=== PATIENT | male | born 1955 | race Caucasian/White ===

== ENCOUNTER 2019-01-16 12:47 | Inpatient (IN) | payer OTHER ==
[~2019-01-16] VITALS: Ht 170.2 cm; Wt 76.8 kg
[~2019-01-16 12:47] MED LIST: APIX5TAB PO; CIPR500T4 PO; FELO5TAB35 PO; FURO20TA3 PO; HYDR-3980 PO; LOSA25TA12 PO; METR-122 PO; MORP10SO PO
--- NOTE | 2019-01-16 13:28 | EN ---
Date/Time of Note Date/Time of Note DATE: 01/16/19 TIME: 13:27 ER Progress Note 63-year-old male with history of colon cancer status post surgery, metastatic liver disease and bone cancer presents for abdominal pain and distention. Medical screening exam initiated and lab/imaging tests ordered. Patient will be seen by another provider. MARTIN JONES DO Jan 16, 2019 13:28
[2019-01-16] MEDS ORDERED: ACETAMINOPHEN 325 MG TAB PO PRN ×2 (18:00→19:30)
[2019-01-16] MEDS ORDERED: ONDANSETRON 4 MG INJ IV PRN ×2 (18:00→19:30)
--- NOTE | 2019-01-16 18:30 | ERD ---
ER Documentation Chief Complaint Chief Complaint abdominal distention/pain/swelling,yellowish discoloration-hx liver cancer HPI 63-year-old male with a history of recurrent colon cancer metastasized to the liver with a liver mass presenting with abdominal distention with new onset jaundice and dark-colored urine. His symptoms have been going on for the past 2 days. No significant abdominal pain. Patient was last here in July, during which time it was found that the patient had a metastatic liver lesion that was causing biliary obstruction. At that time stent was placed and liver biopsy was done. After that the patient symptoms improved. He is currently undergoing chemotherapy and is due soon for his next round of chemo. He has not seen a GI doctor after that hospitalization. He denies any fevers but states that he has night sweats which are not new. No vomiting or diarrhea. He does complained of some mild constipation. ROS All systems reviewed and are negative except as per history of present illness. Medications Home Meds Discontinued Reported Medications Losartan Potassium* (Losartan Potassium*) 25 Mg Tablet, 25 MG PO DAILY 07/24/18 Felodipine* (Felodipine*) 5 Mg Tab.sr.24h, 5 MG PO DAILY 07/24/18 Discontinued Scripts Apixaban* (Eliquis*) 5 Mg Tablet, 2.5 MG PO BID for 60 Days, #120 TAB Prov:MEGHAN HAYNES MD 07/28/18 Allergies Allergies: Coded Allergies: No Known Allergy (Unverified , 07/24/18) PMhx/Soc History of Surgery: Yes (Colon tumor removed 2015, ) Anesthesia Reaction: No Hx Neurological Disorder: No Hx Respiratory Disorders: No Hx Cardiac Disorders: Yes (HTN) Hx Psychiatric Problems: No Hx Miscellaneous Medical Probl: Yes (Liver/colon CA) Hx Alcohol Use: Yes (Alcohol on weekends (6 beers)) Hx Substance Use: No Hx Tobacco Use: Yes (Quit in 1990) Smoking Status: Former smoker FmHx Family History: No diabetes Physical Exam Vitals Vital Signs Date Temp Pulse Resp B/P (MAP) Pulse Ox O2 O2 Flow FiO2 Time Delivery Rate 01/16/19 88 16 101/60 95 Room Air 18:00 (74) 01/16/19 90 16 104/64 94 Room Air 17:00 (77) 01/16/19 98.2 104 20 96/54 (68) 94 12:55 Physical Exam Const: No acute distress, appears jaundiced. Nontoxic Head: Atraumatic Eyes: Scleral icterus, PERRLA ENT: Normal External Ears, Nose and Mouth. Neck: Full range of motion. No meningismus. Resp: Clear to auscultation bilaterally Cardio: Regular rate and rhythm, no murmurs Abd: Soft, nontender to palpation in all 4 quadrants. Negative Saenz sign. Distended with ascites. No peritoneal signs. No palpable masses. No hernias noted. Hypoactive bowel sounds. Skin: Jaundiced. No petechiae or rashes Back: No midline or flank tenderness Ext: No cyanosis, or edema Neur: Awake and alert, normal speech, no facial asymmetry, moving all extremities Psych: Normal Mood and Affect Result Diagram: 01/16/19 1334 01/16/19 1334 Results 24 hrs Laboratory Tests Test 01/16/19 13:34 White Blood Count 12.0 10^3/ul Red Blood Count 4.29 10^6/ul Hemoglobin 12.6 g/dl Hematocrit 37.9 % Mean Corpuscular Volume 88.3 fl Mean Corpuscular Hemoglobin 29.4 pg Mean Corpuscular Hemoglobin Concent 33.2 g/dl Red Cell Distribution Width 19.2 % Platelet Count 234 10^3/UL Mean Platelet Volume 7.8 fl Immature Granulocytes % 0.900 % Neutrophils % 74.6 % Lymphocytes % 12.4 % Monocytes % 11.0 % Eosinophils % 0.6 % Basophils % 0.5 % Nucleated Red Blood Cells % 0.0 /100WBC Immature Granulocytes # 0.110 10^3/ul Neutrophils # 9.0 10^3/ul Lymphocytes # 1.5 10^3/ul Monocytes # 1.3 10^3/ul Eosinophils # 0.1 10^3/ul Basophils # 0.1 10^3/ul Nucleated Red Blood Cells # 0.0 10^3/ul Prothrombin Time 14.9 Sec Prothrombin Time Ratio 1.2 INR International Normalized Ratio 1.16 Activated Partial Thromboplast Time 35.1 Sec Urine Color CHARLIE Urine Clarity SLIGHTLY CLOUDY Urine pH 5.0 Urine Specific [place] 1.017 Urine Ketones NEGATIVE mg/dL Urine Nitrite NEGATIVE mg/dL Urine Bilirubin 2+ mg/dL Urine Urobilinogen 2+ mg/dL Urine Leukocyte Esterase NEGATIVE [place]/ul Urine Microscopic RBC 0 /HPF Urine Microscopic WBC 8 /HPF Urine Amorphous Crystals FEW /HPF Urine Bacteria FEW /HPF Urine Hemoglobin NEGATIVE mg/dL Urine Glucose NEGATIVE mg/dL Urine Total Protein NEGATIVE mg/dl Sodium Level 137 mmol/L Potassium Level 4.6 mmol/L Chloride Level 103 mmol/L Carbon Dioxide Level 26 mmol/L Anion Gap 8 Blood Urea Nitrogen 24 mg/dl Creatinine 1.43 mg/dl Est Glomerular Filtrat Rate mL/min 50 mL/min Glucose Level 149 mg/dl Calcium Level 8.8 mg/dl Total Bilirubin 7.3 mg/dl Direct Bilirubin 5.60 mg/dl Indirect Bilirubin 1.7 mg/dl Aspartate Amino Transf (AST/SGOT) 362 IU/L Alanine Aminotransferase (ALT/SGPT) 195 IU/L Alkaline Phosphatase 1305 IU/L Total Protein 9.0 g/dl Albumin 3.0 g/dl Globulin 6.00 g/dl Albumin/Globulin Ratio 0.50 Lipase 372 U/L Current Medications Medications Dose Sig/Oni Start Time Status Last (Trade) Ordered Route PRN Stop Time Admin Dose Reason Admin Ondansetron 4 mg BRIDGE ORDER 01/16/19 HCl (Zofran PRN IV 18:00 01/17/19 Inj) NAUSEA/VOMITI 17:59 NG 650 mg ER BRIDGE 01/16/19 Acetaminophen PRN PO 18:00 01/17/19 (Tylenol .MILD PAIN 17:59 Tab) 1-3 OR TEMP Procedures/MDM EMERGENT LABS AND DIAGNOSTIC STUDIES: Lab Results above were reviewed and interpreted by me. CBC: no anemia or evidence of infection CMP: Evidence of biliary obstruction with elevated alkaline phosphatase level, hyperbilirubinemia, and transaminitis. Lipase: Mild elevation, no evidence of significant pancreatitis 12-lead EKG was interpreted by Damari Álvarez MD: Normal Sinus Rhythm with ventricular rate of 90 beats per minute Right bundle branch block No acute ST or T wave changes suggestive of acute ischemia or STEMI. Radiology Results as interpreted by Radiology below were reviewed by Umesh Álvarez MD: Chest x-ray shows right pleural effusion Initial Nursing notes reviewed. Previous Medical Records requested via the Electronic Health Record. EMERGENCY DEPARTMENT COURSE / MEDICAL DECISION MAKING: Patient is presenting with new onset jaundice and ascites, likely secondary to biliary obstruction based on his work-up today. Low suspicion for cholangitis or SBP. Patient will require admission for GI consult and intervention most likely. I will defer any further work-up to the inpatient team. Patient will be admitted by Dr. Smith. Consulting Dr. Franco, as he was the GI doctor that saw him on the last admission. Departure Diagnosis: Primary Impression: Ascites Ascites type: other type Qualified Codes: R18.8 - Other ascites Additional Impressions: Biliary tract obstruction Metastatic colon cancer to liver Condition: KATIA Solorzano MD Jan 16, 2019 18:29
[2019-01-16] MEDS ORDERED: NACL 0.9% 3 ML SYG IV SCH (19:30)
[2019-01-16] MEDS ORDERED: morphine 2 MG INJ IV PRN (19:30)
[2019-01-16] MEDS ORDERED: ALBUTEROL/IPRATROPIUM (NEB) 3 ML AMP HHN PRN (19:30)
[2019-01-16] MEDS ORDERED: LORAZEPAM 2 MG INJ IV PRN (19:30)
[2019-01-16] MEDS ORDERED: NITROGLYCERIN (SL) 0.4 MG TAB SL PRN (19:30)
[2019-01-16] MEDS ORDERED: hydrALAzine 20 MG INJ IV PRN (19:30)
[2019-01-16] MEDS ORDERED: DOCUSATE SODIUM 100 MG CAP PO PRN (19:30)
[2019-01-16] MEDS ORDERED: MAGNESIUM HYDROXIDE 30ML CUP PO PRN (19:30)
[2019-01-16] MEDS: SOD CHLORIDE 0.45% 1,000 ML IV SCH (20:46)
[2019-01-16] MEDS: HEPARIN 5,000 UNIT/1 ML VIAL SC SCH (21:28)
[2019-01-16 22:35] VITALS: BP 109/56; PULSE 95; RESP 18
--- NOTE | 2019-01-16 23:01 | HP ---
Date/Time of Note Date/Time of Note DATE: 01/16/19 TIME: 23:01 Assessment/Plan VTE Prophylaxis Pharmacological prophylaxis: heparin Lines/Catheters IV C[facility] Type [facility]from [facility] portacath Assessment/Plan Assessment/Plan 1. Colon cancer with mets to the liver and lung -Patient had colon resection 3 years ago, but unfortunately diagnosed with liver mets in July of this year. -He said he has been receiving chemo ("11 times")and follows up at [facility]. He is oncologist is Dr.Nader Wright ([phone]). 2. Abdominal pain/distention and jaundice -Patient underwent ERCP with stent placement in July of this year. -His bilirubin has improved, however transaminases and alk phos significantly worsening -Obtain abdominal imaging -GI consult 3. Acute renal insufficiency -Continue hydration for now 4. Portal vein thrombosis: diagnosed in July when diagnosed with liver mets -Blood thinner Result Diagram: 01/16/19 1334 01/16/19 1334 Results 24hrs Laboratory Tests Test 01/16/19 13:34 01/16/19 17:30 White Blood Count 12.0 H Red Blood Count 4.29 #L Hemoglobin 12.6 #L Hematocrit 37.9 #L Mean Corpuscular Volume 88.3 Mean Corpuscular Hemoglobin 29.4 Mean Corpuscular Hemoglobin Concent 33.2 Red Cell Distribution Width 19.2 H Platelet Count 234 # Mean Platelet Volume 7.8 Immature Granulocytes % 0.900 H Neutrophils % 74.6 Lymphocytes % 12.4 L Monocytes % 11.0 Eosinophils % 0.6 Basophils % 0.5 Nucleated Red Blood Cells % 0.0 Immature Granulocytes # 0.110 H Neutrophils # 9.0 H Lymphocytes # 1.5 Monocytes # 1.3 H Eosinophils # 0.1 Basophils # 0.1 Nucleated Red Blood Cells # 0.0 Prothrombin Time 14.9 Prothrombin Time Ratio 1.2 INR International Normalized Ratio 1.16 Activated Partial Thromboplast Time 35.1 H Urine Color CHARLIE Urine Clarity SLIGHTLY CLOUDY A Urine pH 5.0 Urine Specific [place] 1.017 Urine Ketones NEGATIVE Urine Nitrite NEGATIVE Urine Bilirubin 2+ H Urine Urobilinogen 2+ H Urine Leukocyte Esterase NEGATIVE Urine Microscopic RBC 0 Urine Microscopic WBC 8 H Urine Amorphous Crystals FEW A Urine Bacteria FEW A Urine Hemoglobin NEGATIVE Urine Glucose NEGATIVE Urine Total Protein NEGATIVE Sodium Level 137 Potassium Level 4.6 Chloride Level 103 Carbon Dioxide Level 26 Anion Gap 8 Blood Urea Nitrogen 24 H Creatinine 1.43 H Est Glomerular Filtrat Rate mL/min 50 L Glucose Level 149 Calcium Level 8.8 Total Bilirubin 7.3 H Direct Bilirubin 5.60 H Indirect Bilirubin 1.7 H Aspartate Amino Transf (AST/SGOT) 362 H Alanine Aminotransferase (ALT/SGPT) 195 H Alkaline Phosphatase 1305 H Total Protein 9.0 H Albumin 3.0 L Globulin 6.00 H Albumin/Globulin Ratio 0.50 Lipase 372 H Free Thyroxine 2.43 HPI/ROS Admit Date/Time Admit Date/Time Jan 16, 2019 at 18:00 Hx of Present Illness Patient is a 63-year-old male with a history of colon cancer diagnosed 3 years ago status post resection (no chemo), recently diagnosed liver and lung metastasis (July 2018), obstructive jaundice status post ERCP with stent placement. Patient was brought to the ER for abdominal pain and distention. Patient also complains of jaundice. He was admitted here in July of this year and at that time he was diagnosed with liver metastasis. He also underwent ERCP with stent placement for obstructive jaundice. He said this current jaundice and worsening abdominal pain/distention started 6 days ago. He said he has been receiving chemo ("11 times")and follows up at [facility]. He is oncologist is Dr.Nader Wright ([phone]). When he presented to the ER, vitals were stable. Labs shows worsening liver chemistries with AST 362, ALT 160, alk phos 1100. Bilirubin however improved from last admission. PMH/Family/Social Past Medical History Past Surgical Hx: other (see hpi) Family History Significant Family History: no pertinent family hx, other Social History Alcohol Use: other Smoking Status: Unknown if ever smoked Drug Use: other Exam Constitutional: other (no acute distress) Head: normocephalic Eyes: PERRL Neck: supple Respiratory: clear to auscultation Cardiovascular: nl pulses Gastrointestinal: soft Extremities: normal pulses Medical History: other Medications Current Medications Ondansetron HCl (Zofran Inj) 4 mg BRIDGE ORDER PRN IV NAUSEA/VOMITING; Start 01/16/19 at 18:00; Stop 01/17/19 at 17:59 Acetaminophen (Tylenol Tab) 650 mg ER BRIDGE PRN PO .MILD PAIN 1-3 OR TEMP; Start 01/16/19 at 18:00; Stop 01/17/19 at 17:59 IV Flush (NS 3 ml) 3 ml PER PROTOCOL IV ; Start 01/16/19 at 19:30 Ondansetron HCl (Zofran Inj) 4 mg Q6H PRN IV NAUSEA/VOMITING; Start 01/16/19 at 19:30 Acetaminophen (Tylenol Tab) 650 mg Q6H PRN PO .PAIN 1-3 OR TEMP; Start 01/16/19 at 19:30 Acetaminophen/ Hydrocodone Bitart ([place] (5/325)) 1 tab Q6H PRN PO .MOD PAIN 4- 6; Start 01/16/19 at 19:30 Morphine Sulfate (morphine) 2 mg Q4H PRN IV .SEVERE PAIN 7-10 Last administered on 01/16/19at 21:27; Admin Dose 2 MG; Start 01/16/19 at 19:30 Docusate Sodium (Colace) 100 mg Q12H PRN PO .CONSTIPATION; Start 01/16/19 at 19:30 Magnesium Hydroxide (Milk Of Mag) 30 ml DAILY PRN PO .CONSTIPATION; Start 01/16/19 at 19:30 Pantoprazole (Protonix Iv) 40 mg DAILY@06 IV ; Start 01/17/19 at 06:00 Heparin Sodium (Porcine) (Heparin (5000 Units/1ml)) 5,000 unit Q12 SC Last administered on 01/16/19at 21:28; Admin Dose 5,000 UNIT; Start 01/16/19 at 21:00 Sodium Chloride 1,000 ml @ 75 mls/hr [id number] IV Last administered on 01/16/19at 20:46; Admin Dose 75 MLS/HR; Start 01/16/19 at 19:13 Lorazepam (Ativan) 0.5 mg Q6H PRN IV ANXIETY; Start 01/16/19 at 19:30 Albuterol/ Ipratropium (Duoneb) 3 ml Q4H RESP THERAPY PRN HHN SHORTNESS OF BREATH; Start 01/16/19 at 19:30 Piperacillin Sod/ Tazobactam Sod 100 ml @ 200 mls/hr Q6 IVPB ; Start 01/17/19 at 00:00 Hydralazine HCl (Apresoline) 10 mg Q6H PRN IV ELEVATED BLOOD PRESSURE; Start 01/16/19 at 19:30 Nitroglycerin (Nitroglycerin (Sl Tab) 0.4 Mg) 1 tab Q5M PRN SL ANGINA; Start 01/16/19 at 19:30 Coded Allergies: No Known Allergy (Unverified , 07/24/18) Family History Significant Family History: cancer Social History Smoking Status: Former smoker Exam/Review of Systems Vital Signs Vitals Vital Signs Date Temp Pulse Resp B/P (MAP) Pulse Ox O2 O2 Flow FiO2 Time Delivery Rate 01/16/19 97.5 95 18 109/56 96 22:35 (73) 01/16/19 Room Air 21:00 JOVANNA JIANG MD Jan 16, 2019 23:01
[2019-01-16] MEDS: PIPER-TAZO 3.375 GM IV (PMX) 100 ML IVPB SCH (23:08)
[2019-01-16 23:35] VITALS: Ht 170.2 cm; Wt 76.8 kg
[2019-01-17] VITALS (15 sets, daily range): BP systolic 73–107; BP diastolic 40–59; PULSE 82–102; RESP 7–20
[2019-01-17] MEDS: PIPER-TAZO 3.375 GM IV (PMX) 100 ML IVPB SCH ×4 (06:11→23:38)
[2019-01-17] MEDS: PANTOPRAZOLE 40 MG INJ IV SCH (06:11)
[2019-01-17] MEDS: SOD CHLORIDE 0.45% 1,000 ML IV SCH (08:33)
[2019-01-17] MEDS: HYDROCODONE/APAP (5/325) TAB PO PRN (09:22)
[2019-01-17] MEDS: HEPARIN 5,000 UNIT/1 ML VIAL SC SCH ×2 (09:22→20:50)
--- NOTE | 2019-01-17 13:22 | CONS ---
DATE OF ADMISSION: 01/16/2019 DATE OF CONSULTATION: 01/17/2019 TYPE OF CONSULTATION: Gastroenterology. Dear Dr. Knott: Thank you for asking me to see Mr. Lacy in GI consultation. HISTORY OF PRESENT ILLNESS: As you know, patient is a 63-year-old gentleman admitted at thi s time to the hospital with history of jaundice and abdominal pain. He is known to have a metastatic carcinoma to the liver. At one point in July 2018 it was felt that he had a [place] tumor and metal stent was placed into the right hepatic duct. The left hepatic duct was completely occluded at that time. At this time, there is no nausea, no vomiting. He has got abdominal pain. He is recei ving chemotherapy at [facility]. REVIEW OF SYSTEM: Please refer to the chart. PHYSICAL EXAMINATION: GENERAL: The patient is a 63-year-old male who at this time is quite alert. VITAL SIGNS: Afebrile. CARDIOVASCULAR: Normal heart sounds. RESPIRATORY: Normal breath sounds. ABDOMEN: Soft. He does have jaundice. LABORATORY WORKUP: WBC count is 10,400, hemoglobin 11.0, potassium 4.5, total bilirubin is 7.0, AST is 272, ALT 160, alkaline phosphatase is 1095, lipase is 372. The ultrasound of the upper abdomen shows evidence of hepatosplenomegaly with echotexture consistent with cirrhosis and ascites. Gallbladder wall thickening, small echogenic nodule noted in the right l obe of the liver consistent with metastatic disease. CLINICAL IMPRESSION: The patient has progressive jaundice at this time. It is quite possible he cou ld have the metal stent which he has in place now could have been occluded and probably could have di ffuse metastatic liver disease. He has a history of colon cancer resection done 3 years ago, not sure whether he had repeat colonosco py. PLAN: At this time, we will wait for the CAT scan of the abdomen results and he will have an ERCP fo r evaluation and management. I discussed with the patient and patient agreed. Dictated By: DOMINIC GONZALEZ/NTS Conf#: [id number] DID#: [id number] CC: JOVANNA KNOTT MD;*EndCC*
--- NOTE | 2019-01-17 14:12 | PN ---
Date/Time of Note Date/Time of Note DATE: 01/17/19 TIME: 14:02 Assessment/Plan VTE Prophylaxis Risk score (from Ns)>0 risk: 2 SCD applied (from [facility] Yes Pharmacological prophylaxis: heparin Lines/Catheters IV C[facility] Type [facility]from [facility] Port A cath Assessment/Plan Assessment/Plan 1. Obstructive jaundice from metastatic colon cancer, s/p stent in 07/2018, repeat ERCP today 2. Colon cancer with mets to the liver and lungs, s/p colon resection 3 years ago, but diagnosed with liver mets in July 2018, on chemotherapy with Dr.Nader Wright ([phone]). 3. Acute renal insufficiency, IVF, follow up with BMP 4. Portal vein thrombosis: diagnosed in 07/2018 5. Normocytic anemia due to malignancy, follow up with H/H 6. DVT prophylaxis: heparin SQ Result Diagram: 01/17/19 0452 01/17/19 0452 Results 24hrs Laboratory Tests Test 01/16/19 17:30 01/17/19 04:52 Free Thyroxine 2.43 White Blood Count 10.4 Red Blood Count 3.75 L Hemoglobin 11.0 L Hematocrit 33.3 L Mean Corpuscular Volume 88.8 Mean Corpuscular Hemoglobin 29.3 Mean Corpuscular Hemoglobin Concent 33.0 Red Cell Distribution Width 19.3 H Platelet Count 223 Mean Platelet Volume 8.4 Immature Granulocytes % 1.000 H Neutrophils % 72.3 Lymphocytes % 12.9 L Monocytes % 11.8 H Eosinophils % 1.5 Basophils % 0.5 Nucleated Red Blood Cells % 0.0 Immature Granulocytes # 0.100 H Neutrophils # 7.5 Lymphocytes # 1.3 Monocytes # 1.2 H Eosinophils # 0.2 Basophils # 0.1 Nucleated Red Blood Cells # 0.0 Sodium Level 136 Potassium Level 4.5 Chloride Level 104 Carbon Dioxide Level 24 Anion Gap 8 Blood Urea Nitrogen 30 H Creatinine 2.19 H Est Glomerular Filtrat Rate mL/min 31 L Glucose Level 84 # Hemoglobin A1c 4.7 Calcium Level 8.3 L Phosphorus Level 5.7 H Magnesium Level 2.4 Total Bilirubin 7.0 H Direct Bilirubin 5.50 H Indirect Bilirubin 1.5 H Aspartate Amino Transf (AST/SGOT) 272 H Alanine Aminotransferase (ALT/SGPT) 160 H Alkaline Phosphatase 1095 H Total Protein 7.8 # Albumin 2.7 L Triglycerides Level 161 H Cholesterol Level 191 LDL Cholesterol, Calculated 147 HDL Cholesterol 12 L Cholesterol/HDL Ratio 15.9 Thyroid Stimulating Hormone (TSH) 2.160 Subjective 24 Hr Interval Summary Free Text/Dictation mild abdominal pain today, no nausea or vomiting Exam/Review of Systems Exam Vitals Vital Signs Date Temp Pulse Resp B/P (MAP) Pulse Ox O2 O2 Flow FiO2 Time Delivery Rate 01/17/19 97.7 82 18 90/51 (64) 94 12:40 01/16/19 Room Air 21:00 Intake and Output 01/16/19 01/16/19 01/17/19 1515:00 23:00 07:00 IntakeIntake Total 750 ml BalanceBalance 750 ml Constitutional: alert, oriented, well developed Psych: no complaints, nl mood/affect Head: normocephalic, atraumatic Eyes: nl conjunctiva, EOMI, nl lids, PERRL ENMT: nl external ears & nose, nl lips & teeth, nl nasal mucosa & septum Neck: supple, non-tender Respiratory: clear to auscultation, normal air movement; No congested cough, No crackles/rales, No diminished breath sounds, No int ercostal retraction, No labored breathing, No respirations, No tactile fremitus, No wheezing, No other Cardiovascular: regular rate and rhythm, nl pulses; No bruits, No diastolic murmur, No edema, No gallop, No irregular rhythm, No jugular venous distention (JVD), No murmurs/extra sounds, No rub, No systolic murmur, No S3, No S4, No other Gastrointestinal: distended, tender Musculoskeletal: nl extremities to inspection Extremities: normal pulses; No calf tenderness, No cyanosis, No clubbing, No edema, No pitting pedal edema, No palpable cord, No tenderness, No other Neurological: DUMP GROUNDS CHECKER II-XII intact, nl mental status, nl speech, nl strength Results Results 24hrs Laboratory Tests Test 01/16/19 17:30 01/17/19 04:52 Free Thyroxine 2.43 White Blood Count 10.4 Red Blood Count 3.75 L Hemoglobin 11.0 L Hematocrit 33.3 L Mean Corpuscular Volume 88.8 Mean Corpuscular Hemoglobin 29.3 Mean Corpuscular Hemoglobin Concent 33.0 Red Cell Distribution Width 19.3 H Platelet Count 223 Mean Platelet Volume 8.4 Immature Granulocytes % 1.000 H Neutrophils % 72.3 Lymphocytes % 12.9 L Monocytes % 11.8 H Eosinophils % 1.5 Basophils % 0.5 Nucleated Red Blood Cells % 0.0 Immature Granulocytes # 0.100 H Neutrophils # 7.5 Lymphocytes # 1.3 Monocytes # 1.2 H Eosinophils # 0.2 Basophils # 0.1 Nucleated Red Blood Cells # 0.0 Sodium Level 136 Potassium Level 4.5 Chloride Level 104 Carbon Dioxide Level 24 Anion Gap 8 Blood Urea Nitrogen 30 H Creatinine 2.19 H Est Glomerular Filtrat Rate mL/min 31 L Glucose Level 84 # Hemoglobin A1c 4.7 Calcium Level 8.3 L Phosphorus Level 5.7 H Magnesium Level 2.4 Total Bilirubin 7.0 H Direct Bilirubin 5.50 H Indirect Bilirubin 1.5 H Aspartate Amino Transf (AST/SGOT) 272 H Alanine Aminotransferase (ALT/SGPT) 160 H Alkaline Phosphatase 1095 H Total Protein 7.8 # Albumin 2.7 L Triglycerides Level 161 H Cholesterol Level 191 LDL Cholesterol, Calculated 147 HDL Cholesterol 12 L Cholesterol/HDL Ratio 15.9 Thyroid Stimulating Hormone (TSH) 2.160 Medications Medication Current Medications Ondansetron HCl (Zofran Inj) 4 mg BRIDGE ORDER PRN IV NAUSEA/VOMITING; Start 01/16/19 at 18:00; Stop 01/17/19 at 17:59 Acetaminophen (Tylenol Tab) 650 mg ER BRIDGE PRN PO .MILD PAIN 1-3 OR TEMP; Start 01/16/19 at 18:00; Stop 01/17/19 at 17:59 IV Flush (NS 3 ml) 3 ml PER PROTOCOL IV ; Start 01/16/19 at 19:30 Ondansetron HCl (Zofran Inj) 4 mg Q6H PRN IV NAUSEA/VOMITING; Start 01/16/19 at 19:30 Acetaminophen (Tylenol Tab) 650 mg Q6H PRN PO .PAIN 1-3 OR TEMP; Start 01/16/19 at 19:30 Acetaminophen/ Hydrocodone Bitart ([place] (5/325)) 1 tab Q6H PRN PO .MOD PAIN 4- 6 Last administered on 01/17/19at 09:22; Admin Dose 1 TAB; Start 01/16/19 at 19:30 Morphine Sulfate (morphine) 2 mg Q4H PRN IV .SEVERE PAIN 7-10 Last administered on 01/16/19at 21:27; Admin Dose 2 MG; Start 01/16/19 at 19:30 Docusate Sodium (Colace) 100 mg Q12H PRN PO .CONSTIPATION; Start 01/16/19 at 19:30 Magnesium Hydroxide (Milk Of Mag) 30 ml DAILY PRN PO .CONSTIPATION; Start 01/16/19 at 19:30 Pantoprazole (Protonix Iv) 40 mg DAILY@06 IV Last administered on 01/17/19at 06:11; Admin Dose 40 MG; Start 01/17/19 at 06:00 Heparin Sodium (Porcine) (Heparin (5000 Units/1ml)) 5,000 unit Q12 SC Last administered on 01/17/19at 09:22; Admin Dose 5,000 UNIT; Start 01/16/19 at 21:00 Sodium Chloride 1,000 ml @ 75 mls/hr [id number] Last administered on 01/16/19at 20:46; Admin Dose 75 MLS/HR; Start 01/16/19 at 19:13 Lorazepam (Ativan) 0.5 mg Q6H PRN IV ANXIETY; Start 01/16/19 at 19:30 Albuterol/ Ipratropium (Duoneb) 3 ml Q4H RESP THERAPY PRN HHN SHORTNESS OF BREATH; Start 01/16/19 at 19:30 Piperacillin Sod/ Tazobactam Sod 100 ml @ 200 mls/hr Q6 IVPB Last administered on 01/17/19at 12:50; Admin Dose 200 MLS/HR; Start 01/17/19 at 00:00 Hydralazine HCl (Apresoline) 10 mg Q6H PRN IV ELEVATED BLOOD PRESSURE; Start 01/16/19 at 19:30 Nitroglycerin (Nitroglycerin (Sl Tab) 0.4 Mg) 1 tab Q5M PRN SL ANGINA; Start 01/16/19 at 19:30 ALLIE TRAYLOR MD Jan 17, 2019 14:12
[2019-01-17] MEDS: DEXTROSE 5%-0.45% NACL 1,000 ML IV SCH (16:02)
--- NOTE | 2019-01-17 16:29 | PREAC ---
Date/Time of Note Date/Time of Note DATE: 01/17/19 TIME: 16:27 Anesthesia Eval and Record Evaluation Time Pre-Procedure Interview DATE: 01/17/19 TIME: 16:27 Age 63 Sex male NPO: 8 hrs Preoperative diagnosis OBSTRUCTIVE JAUNDICE Planned procedure ERCP Past Medical History Past Medical History: Includes (COLON CARCINOMA, S/P CHEMO) Cardio: HTN Endo: Diabetes Surgery & Anesthesia Issues No known issue Meds Anticoagulation: No Beta Ruby within 24 hr: No Reason Beta Ruby not given: Pt. not on B-Ruby Discontinued Reported Medications Losartan Potassium* (Losartan Potassium*) 25 Mg Tablet, 25 MG PO DAILY 07/24/18 Felodipine* (Felodipine*) 5 Mg Tab.sr.24h, 5 MG PO DAILY 07/24/18 Discontinued Scripts Apixaban* (Eliquis*) 5 Mg Tablet, 2.5 MG PO BID for 60 Days, #120 TAB Prov:MEGHAN HAYNES MD 07/28/18 Current Medications IV Flush (NS 3 ml) 3 ml PER PROTOCOL IV ; Start 01/16/19 at 19:30 Ondansetron HCl (Zofran Inj) 4 mg Q6H PRN IV NAUSEA/VOMITING; Start 01/16/19 at 19:30 Acetaminophen (Tylenol Tab) 650 mg Q6H PRN PO .PAIN 1-3 OR TEMP; Start 01/16/19 at 19:30 Acetaminophen/ Hydrocodone Bitart (Paden (5/325)) 1 tab Q6H PRN PO .MOD PAIN 4- 6 Last administered on 01/17/19at 09:22; Admin Dose 1 TAB; Start 01/16/19 at 19:30 Morphine Sulfate (morphine) 2 mg Q4H PRN IV .SEVERE PAIN 7-10 Last administered on 01/16/19at 21:27; Admin Dose 2 MG; Start 01/16/19 at 19:30 Docusate Sodium (Colace) 100 mg Q12H PRN PO .CONSTIPATION; Start 01/16/19 at 19:30 Magnesium Hydroxide (Milk Of Mag) 30 ml DAILY PRN PO .CONSTIPATION; Start 01/16/19 at 19:30 Pantoprazole (Protonix Iv) 40 mg DAILY@06 IV Last administered on 01/17/19at 06:11; Admin Dose 40 MG; Start 01/17/19 at 06:00 Heparin Sodium (Porcine) (Heparin (5000 Units/1ml)) 5,000 unit Q12 SC Last administered on 01/17/19at 09:22; Admin Dose 5,000 UNIT; Start 01/16/19 at 21:00 Sodium Chloride 1,000 ml @ 100 mls/hr Q10H IV Last administered on 01/16/19at 20:46; Admin Dose 75 MLS/HR; Start 01/16/19 at 19:13 Lorazepam (Ativan) 0.5 mg Q6H PRN IV ANXIETY; Start 01/16/19 at 19:30 Albuterol/ Ipratropium (Duoneb) 3 ml Q4H RESP THERAPY PRN HHN SHORTNESS OF BREATH; Start 01/16/19 at 19:30 Piperacillin Sod/ Tazobactam Sod 100 ml @ 200 mls/hr Q6 IVPB Last administered on 01/17/19at 12:50; Admin Dose 200 MLS/HR; Start 01/17/19 at 00:00 Hydralazine HCl (Apresoline) 10 mg Q6H PRN IV ELEVATED BLOOD PRESSURE; Start 01/16/19 at 19:30 Nitroglycerin (Nitroglycerin (Sl Tab) 0.4 Mg) 1 tab Q5M PRN SL ANGINA; Start 01/16/19 at 19:30 Dextrose/Sodium Chloride 1,000 ml @ 100 mls/hr Q10H IV ; Start 01/17/19 at 16:00 Meds reviewed: Yes Allergies Coded Allergies: No Known Allergy (Unverified , 07/24/18) Allergies Reviewed: Yes Labs/Studies Labs Reviewed: Reviewed by anesthesiologist Result Diagram: 01/17/19 0452 01/17/19 0452 Laboratory Tests 01/17/19 04:52 test: N/A Studies: CXR (The cardiovascular silhouette is stable and unremarkable.) Pre-procedure Exam Last vitals Vital Signs Date Temp Pulse Resp B/P (MAP) Pulse Ox O2 O2 Flow FiO2 Time Delivery Rate 01/17/19 97.7 82 18 90/51 (64) 94 12:40 01/16/19 Room Air 21:00 Airway: Adequate mouth opening, Adequate thyromental dist Mallampati: Mallampati II Teeth: Abnormal (PARTIAL UPPER DENTURE) Lung: Normal Heart: Normal ASA Physical Status ASA physical status: 2 Emergency: None Planned Anesthetic General/MAC: ETT Planned Pain Management Parenteral pain med Pre-operative Attestations Prior to commencing anesthesia and surgery, the patient was re-evaluated, there was verification of: *The patient's identity *The results of appropriate recent lab work and preoperative vital signs *The above evaluation not changing prior to induction *Anesthetic plan, risk benefits, alternative and complications discussed with patient/family; questions answered; patient/family understands, accepts and wishes to proceed. Neto Tavares M.D. Jan 17, 2019 16:29
[2019-01-17] MEDS ORDERED: TRIMETHOBENZAMIDE 100 MG/ML VIAL IM PRN (16:30)
[2019-01-17] MEDS ORDERED: hydrALAzine 20 MG INJ IV PRN (16:30)
[2019-01-17] MEDS ORDERED: MEPERIDINE 25 MG INJ IV PRN (16:30)
[2019-01-17] MEDS ORDERED: ONDANSETRON 4 MG INJ IV PRN (16:30)
[2019-01-17] MEDS ORDERED: FENTAnyl 50 MCG/ML VIAL IV PRN ×3 (16:30)
[2019-01-17] MEDS ORDERED: MIDAZOLAM 1 MG/ML 2 ML INJ IV PRN (16:30)
[2019-01-17] MEDS ORDERED: LABETALOL HCL 20MG INJ IV PRN (16:30)
[2019-01-17] MEDS ORDERED: IPRATROPIUM (NEB) 0.5 MG/2.5 ML AMP HHN PRN (16:30)
[2019-01-17] MEDS ORDERED: OXYCODONE/ACETAMINOPHEN (5/325) TAB PO PRN ×2 (16:30)
[2019-01-17] MEDS ORDERED: ALBUTEROL 0.083% (NEB) 2.5 MG/3 ML AMP HHN PRN (16:30)
[2019-01-17] MEDS ORDERED: HYDROmorphONE 1 MG/5 ML IV SYRINGE IV PRN ×3 (16:30)
[2019-01-17] MEDS ORDERED: DIPHENHYDRAMINE 50 MG INJ IV PRN (16:30)
[2019-01-17] MEDS ORDERED: EPHEDrine 25 MG/5 ML SYG IV PRN (16:30)
[2019-01-17] MEDS ORDERED: PROPOFOL 20 ML ONE (16:34)
[2019-01-17] MEDS ORDERED: CEFAZOLIN 1 GM INJ ONE (16:34)
[2019-01-17] MEDS ORDERED: GLYCOPYRROLATE 0.4 MG INJ ONE (16:34)
[2019-01-17] MEDS ORDERED: NEOSTIGMINE 3 MG/3 ML SYRINGE ONE (16:34)
[2019-01-17] MEDS ORDERED: ROCURONIUM 50 MG INJ ONE (16:34)
[2019-01-17] MEDS ORDERED: ONDANSETRON 4 MG INJ ONE (16:35)
[2019-01-17] MEDS ORDERED: DEXAMETHASONE 4 MG/ML 5 ML INJ ONE (16:35)
[2019-01-17] MEDS ORDERED: FENTAnyl 50 MCG/ML VIAL ONE (16:35)
[2019-01-17] MEDS ORDERED: MIDAZOLAM 1 MG/ML 2 ML INJ ONE (16:36)
[2019-01-17] MEDS ORDERED: IOHEXOL 300MG/ML 30 ML BTL ONE (17:35)
--- NOTE | 2019-01-17 18:59 | PAC ---
Date/Time of Note Date/Time of Note DATE: 01/17/19 TIME: 18:59 Post-Anesthesia Notes Post-Anesthesia Note Last documented vital signs Vital Signs Date Temp Pulse Resp B/P (MAP) Pulse Ox O2 O2 Flow FiO2 Time Delivery Rate 01/17/19 97.7 82 18 90/51 (64) 94 12:40 01/16/19 Room Air 21:00 Activity: WNL Respiratory function: WNL Cardiovascular function: WNL Mental status: Baseline Pain reasonably controlled: Yes Hydration appropriate: Yes Nausea/Vomiting absent: Yes Neto Tavares M.D. Jan 17, 2019 18:59
[2019-01-17] MEDS ORDERED: DEXTROSE 50% 50 ML SYRINGE ONE (19:05)
--- NOTE | 2019-01-17 19:21 | OPR ---
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 Estimated Blood Loss: none Transfusion none Specimen none Grafts/Implants none Complications none Pt Condition Post Procedure: stable Disposition: PACU Indications obstructive jaundise Procedure Description ercp removel of cbd stones pus and cbd stent placement DOMINIC AMEZCUA MD Jan 17, 2019 19:21
[2019-01-18 02:58] VITALS: BP 96/56; PULSE 90; RESP 18
[2019-01-18] MEDS: PIPER-TAZO 3.375 GM IV (PMX) 100 ML IVPB SCH ×3 (05:31→18:33)
[2019-01-18] MEDS: DEXTROSE 5%-0.45% NACL 1,000 ML IV SCH ×3 (05:34→20:05)
[2019-01-18] MEDS: PANTOPRAZOLE 40 MG INJ IV SCH (05:35)
[2019-01-18 08:06] VITALS: BP 91/56; PULSE 78; RESP 20
[2019-01-18] MEDS: HEPARIN 5,000 UNIT/1 ML VIAL SC SCH ×2 (08:32→20:06)
--- NOTE | 2019-01-18 11:56 | PN ---
Date/Time of Note Date/Time of Note DATE: 01/18/19 TIME: 11:53 Assessment/Plan VTE Prophylaxis Risk score (from Ns)>0 risk: 4 SCD applied (from [facility] [place] Yes Pharmacological prophylaxis: heparin Lines/Catheters IV Catheter Type (from [facility]): Peripheral IV Assessment/Plan Assessment/Plan 1. Obstructive jaundice from metastatic colon cancer, s/p stent in 07/2018, repeat ERCP with CBD stent on 01/17/2019, follow up with Salvador Cooper, Dr. Rogers will see patient for either continuing chemo or go for hospice care, then decide whether to repeat ERCP for two metal stents for CBD obstruction 2. Acute cholangitis, on antibiotics 3. Colon cancer with mets to the liver and lungs, s/p colon resection 3 years ago, but diagnosed with liver mets in July 2018, on chemotherapy with Dr.Nader Wright ([phone]) who is on vacation and will be back on . 4. Acute on renal insufficiency, IVF, follow up with [facility] 4. Portal vein thrombosis: diagnosed in 07/2018 5. Normocytic anemia due to malignancy, follow up with H/H 6. DVT prophylaxis: heparin SQ Result Diagram: 01/18/19 0456 01/18/19 0456 Results 24hrs Laboratory Tests Test 01/17/19 15:49 01/17/19 15:51 01/17/19 16:13 01/17/19 19:04 Bedside Glucose 68 L 69 L 76 76 Test 01/17/19 19:17 01/18/19 04:56 Bedside Glucose 135 White Blood Count 8.1 # Red Blood Count 3.93 L Hemoglobin 11.5 L Hematocrit 35.3 L Mean Corpuscular Volume 89.8 Mean Corpuscular 29.3 Hemoglobin Mean Corpuscular 32.6 Hemoglobin Concent Red Cell Distribution 19.0 H Width Platelet Count 195 Mean Platelet Volume 8.3 Immature Granulocytes % 1.100 H Neutrophils % Segmented Neutrophils 84 H % (Manual) Lymphocytes % Lymphocytes % (Manual) 10 L Reactive Lymphocytes 3 H % (Manual) Monocytes % Monocytes % (Manual) 3 Eosinophils % Basophils % Nucleated Red Blood 0.0 Cells % Immature Granulocytes # 0.090 H Neutrophils # Lymphocytes (Manual) 0.8 Lymphocytes # Reactive Lymphocytes # 0.2 H Monocytes # Monocytes # (Manual) 0.2 L Eosinophils # Basophils # Nucleated Red Blood Cells # Platelet Estimate NORMAL Polychromasia 1+ Anisocytosis 2+ Macrocytosis 1+ Spherocytes 1+ Sodium Level 136 Potassium Level 4.9 Chloride Level 107 Carbon Dioxide Level 19 L Anion Gap 10 Blood Urea Nitrogen 35 H Creatinine 2.37 H Est Glomerular Filtrat 28 L Rate mL/min Glucose Level 180 Calcium Level 7.9 L Total Bilirubin 6.1 H Direct Bilirubin 4.80 H Indirect Bilirubin 1.3 H Aspartate Amino 212 H Transf (AST/SGOT) Alanine 142 H Aminotransferase (ALT/SG PT) Alkaline Phosphatase 967 H Total Protein 7.2 Albumin 2.2 L Globulin 5.00 H Albumin/Globulin Ratio 0.44 Amylase Level 65 Lipase 74 Subjective 24 Hr Interval Summary Free Text/Dictation no abdominal pain Exam/Review of Systems Exam Vitals Vital Signs Date Temp Pulse Resp B/P (MAP) Pulse Ox O2 O2 Flow FiO2 Time Delivery Rate 01/18/19 97.6 78 20 91/56 (68) 90 08:06 01/17/19 Nasal 2.0 20:10 Cannula Intake and Output 01/17/19 01/17/19 01/18/19 1515:00 23:00 07:00 IntakeIntake Total 100 ml 450 ml 1200 ml BalanceBalance 100 ml 450 ml 1200 ml Constitutional: alert, oriented, well developed Head: normocephalic, atraumatic Eyes: nl conjunctiva, EOMI, nl lids ENMT: nl external ears & nose, nl lips & teeth, nl nasal mucosa & septum Neck: supple, non-tender Respiratory: clear to auscultation, normal air movement; No congested cough, No crackles/rales, No diminished breath sounds, No intercostal retraction, No labored breathing, No respirations, No tactile fremitus, No wheezing, No other Cardiovascular: regular rate and rhythm, nl pulses; No bruits, No diastolic murmur, No edema, No gallop, No irregular rhythm, No jugular venous distention (JVD), No murmurs/extra sounds, No rub, No systolic murmur, No S3, No S4, No other Gastrointestinal: distended Musculoskeletal: nl extremities to inspection Extremities: normal pulses; No calf tenderness, No cyanosis, No clubbing, No edema, No pitting pedal edema, No palpable cord, No tenderness, No other Neurological: SEEING EYE DOG TRAINER II-XII intact, nl mental status, nl speech, nl strength Results Results 24hrs Laboratory Tests Test 01/17/19 15:49 01/17/19 15:51 01/17/19 16:13 01/17/19 19:04 Bedside Glucose 68 L 69 L 76 76 Test 01/17/19 19:17 01/18/19 04:56 Bedside Glucose 135 White Blood Count 8.1 # Red Blood Count 3.93 L Hemoglobin 11.5 L Hematocrit 35.3 L Mean Corpuscular Volume 89.8 Mean Corpuscular 29.3 Hemoglobin Mean Corpuscular 32.6 Hemoglobin Concent Red Cell Distribution 19.0 H Width Platelet Count 195 Mean Platelet Volume 8.3 Immature Granulocytes % 1.100 H Neutrophils % Segmented Neutrophils 84 H % (Manual) Lymphocytes % Lymphocytes % (Manual) 10 L Reactive Lymphocytes 3 H % (Manual) Monocytes % Monocytes % (Manual) 3 Eosinophils % Basophils % Nucleated Red Blood 0.0 Cells % Immature Granulocytes # 0.090 H Neutrophils # Lymphocytes (Manual) 0.8 Lymphocytes # Reactive Lymphocytes # 0.2 H Monocytes # Monocytes # (Manual) 0.2 L Eosinophils # Basophils # Nucleated Red Blood Cells # Platelet Estimate NORMAL Polychromasia 1+ Anisocytosis 2+ Macrocytosis 1+ Spherocytes 1+ Sodium Level 136 Potassium Level 4.9 Chloride Level 107 Carbon Dioxide Level 19 L Anion Gap 10 Blood Urea Nitrogen 35 H Creatinine 2.37 H Est Glomerular Filtrat 28 L Rate mL/min Glucose Level 180 Calcium Level 7.9 L Total Bilirubin 6.1 H Direct Bilirubin 4.80 H Indirect Bilirubin 1.3 H Aspartate Amino 212 H Transf (AST/SGOT) Alanine 142 H Aminotransferase (ALT/SG PT) Alkaline Phosphatase 967 H Total Protein 7.2 Albumin 2.2 L Globulin 5.00 H Albumin/Globulin Ratio 0.44 Amylase Level 65 Lipase 74 Medications Medication Current Medications IV Flush (NS 3 ml) 3 ml PER PROTOCOL IV ; Start 01/16/19 at 19:30 Ondansetron HCl (Zofran Inj) 4 mg Q6H PRN IV NAUSEA/VOMITING; Start 01/16/19 at 19:30 Acetaminophen (Tylenol Tab) 650 mg Q6H PRN PO .PAIN 1-3 OR TEMP; Start 01/16/19 at 19:30 Acetaminophen/ Hydrocodone Bitart ([place] (5/325)) 1 tab Q6H PRN PO .MOD PAIN 4- 6 Last administered on 01/17/19at 09:22; Admin Dose 1 TAB; Start 01/16/19 at 19:30 Morphine Sulfate (morphine) 2 mg Q4H PRN IV .SEVERE PAIN 7-10 Last administered on 01/16/19at 21:27; Admin Dose 2 MG; Start 01/16/19 at 19:30 Docusate Sodium (Colace) 100 mg Q12H PRN PO .CONSTIPATION; Start 01/16/19 at 19:30 Magnesium Hydroxide (Milk Of Mag) 30 ml DAILY PRN PO .CONSTIPATION; Start 01/16/19 at 19:30 Pantoprazole (Protonix Iv) 40 mg DAILY@06 IV Last administered on 01/18/19at 05:35; Admin Dose 40 MG; Start 01/17/19 at 06:00 Heparin Sodium (Porcine) (Heparin (5000 Units/1ml)) 5,000 unit Q12 SC Last administered on 01/18/19at 08:32; Admin Dose 5,000 UNIT; Start 01/16/19 at 21:00 Lorazepam (Ativan) 0.5 mg Q6H PRN IV ANXIETY; Start 01/16/19 at 19:30 Albuterol/ Ipratropium (Duoneb) 3 ml Q4H RESP THERAPY PRN HHN SHORTNESS OF BREATH; Start 01/16/19 at 19:30 Piperacillin Sod/ Tazobactam Sod 100 ml @ 200 mls/hr Q6 IVPB Last administered on 01/18/19 05:31; Admin Dose 200 MLS/HR; Start 01/17/19 at 00:00 Hydralazine HCl (Apresoline) 10 mg Q6H PRN IV ELEVATED BLOOD PRESSURE; Start 01/16/19 at 19:30 Nitroglycerin (Nitroglycerin (Sl Tab) 0.4 Mg) 1 tab Q5M PRN SL ANGINA; Start 01/16/19 at 19:30 Dextrose/Sodium Chloride 1,000 ml @ 100 mls/hr Q10H IV Last administered on 01/18/19at 05:34; Admin Dose 100 MLS/HR; Start 01/17/19 at 16:00 ALLIE TRAYLOR MD Jan 18, 2019 11:56
--- NOTE | 2019-01-18 12:07 | GILP ---
DATE OF PROCEDURE: 01/16/2019 PREOPERATIVE DIAGNOSIS: ERCP for removal of multiple stones from the common bile duct, removal of a paucity of the common bile duct and dilatation of the stricture of the joshua hepatis area and the dil atation. After the dilatation, a 7-Serbian CBD stent was placed into the right hepatic duct. DESCRIPTION OF PROCEDURE: After the informed written consent was obtained, the patient was intubated by anesthesiologist, Dr. Tavares. While the patient was in the prone position, Olympus video side -viewing duodenoscope was inserted into the oropharynx, then into the esophagus and then into the sto mach and then into the duodenum. There is evidence of ampulla located in normal location, but the pr eviously placed metal stent is not visible. It appears that it has migrated into the common bile calixto t. Multiple filling defects were noted in the common bile duct where the metal stent is. There is evide nce of an almost what looks like a total obstruction at the joshua hepatis area, but eventually was di lated and stricture of the joshua hepatis area was noted. When the cannulation was performed with the help of a Dreamtome, the Dreamtome was inserted into the metal stent that is in the common bile duct. When the contrast was injected, there is no visualizati on of any filling defects in the common bile duct and there is no contrast visible indicating the zhang ter of the metal stent area was occupied by some structures; either tumor or stones, or sludge. Vigli nadia, at this time, a stone extraction balloon was inserted into the proximal common bile duct and whe n the balloon sweeping was performed, innumerable CBD stones were removed. Copious amount of sludge was removed. Copious amount of pus was removed. Irrigation of the common bile duct was performed wi th water and that also helped to clean the common bile duct. After removing multiple stones from the common bile duct, the joshua hepatis area was visualized. The re was a very tight stricture noted and I dilated the stricture with a 4-Serbian Hurricane dilator. 2. 6-Serbian Hurricane dilator. 3. 8-Serbian Hurricane dilator and I wanted to put a metal stent into the right hepatic duct. It is to be noted that proximal to this stricture of the joshua hepatis, multiple branches were noted. Most of the branches appear to be connected to the right hepatic duct, but there is a stricture noted dayana t there is a left duct is there or not, is not very clear. At this time, I elected not to put a meta l stent because it was extremely difficult to dilate the stricture of the joshua hepatis area and I di d not want to have the stents stuck in this area. Hence, I decided to put a 7-Serbian 15 cm long [place] type of a plastic stent into the right hepatic duct across the stricture of the joshua hepatis a nd across the ampulla into the duodenum and a good amount of the yellowish bile started draining from the stent, indicating that the stent is in the proper position. Several photographs were obtained a nd the procedure was terminated. It is to be noted each time the Hurricane biliary balloon was inser marlyn and balloon dilatation was maintained for 30 seconds, sometimes 60 seconds, and the procedure was terminated at the end of all the maneuvers. Dictated By: DOMINIC AMEZCUA MD NC/NTS Conf#: [id number] DID#: [id number] CC: ALLIE TRAYLOR MD; JOVANNA JIANG MD;*End*
[2019-01-18 14:17] VITALS: BP 98/60; PULSE 85; RESP 20
--- NOTE | 2019-01-18 15:03 | CONS ---
DATE OF ADMISSION: 01/16/2019 DATE OF CONSULTATION: 01/18/2019 SUBJECTIVE: The patient at this time feels comfortable. He has got a little pain in the right upper quadrant area. Essentially, the history is that he had a rectal carcinoma operated 3 years ago. In July this year he presented with obstructive jaundice. It was felt that he had a [place] type of tumor, but it is felt that he has got metastatic disease in the liver, probably from the old carci noma of the rectum. He was receiving chemotherapy by other doctor in [facility], name is Dr. Ethan Willard phone [phone] and because of the obstructive jaundice, he was admitted to the [facility]. ERCP was performed and the ERCP shows evidence of metal stent in the common bile duct which apparently has migrated to the inside of the common bile duct and doing ERCP, the contrast was injec marlyn. There was no contrast visible in the common bile duct and common hepatic duct because the entir e common bile duct which has got a metal stent is occupied by the tumor and the pus and sludge and mo st of the tumor and sludge and pus was retrieved yesterday from the common bile duct, meaning that fr om the inside of the metal stent which is in the common bile duct and common hepatic duct and there w as a stricture noted in the bifurcation of the left and right hepatic ducts. This area was dilated w ith 4, 6 and 8-Ukrainian Hurricane biliary dilators. Subsequently, it was felt that patient's stricture was so tight that a metal stent could not be pushed through the stricture and I decided to insert a 7-Ukrainian stent which is 15 cm long, and at the end of the stent placement, good drainage of the bile was noted coming out through the distal end of the biliary stent. PHYSICAL EXAMINATION: GENERAL: The patient is alert, is still jaundiced. VITAL SIGNS: Temperature 97.6, blood pressure is 91/56. CARDIOVASCULAR: Normal heart sounds. RESPIRATORY: Normal breath sounds. ABDOMEN: Shows soft abdomen. LABORATORY WORKUP: Potassium is 4.9, bilirubin is down to 6.1, AST 212, ALT 142, alkaline phosphatas e 967. The WBC count is down to 8100. He is currently on antibiotics, which includes cefazolin. He is also on pantoprazole. He is also on Zosyn. CLINICAL IMPRESSION: By reviewing all the studies, the CAT scan of the abdomen shows that he has got extensive metastatic disease in the liver. There is a large calcified mass noted in the left lobe o f the liver. Mesenteric lymphadenopathy is noted. There is essentially ulcer noted to be infiltrated by the tumor . There is ascites. It appears that the patient has extensive metastatic disease particularly in the liver. He has recei gurmeet a course of chemotherapy. Whether this patient is going to receive more chemotherapy or no t it needs to be discussed with oncologist and there is always more room to put more metal stents int o the bile duct and hepatic ducts; however, because of the extensive metastatic disease, even if we p ut more metal stent it, that may not help to bring his liver functions to normal. PLAN: Discussed with Dr. Traylor and he will discuss with oncologist and will go from there. Dictated By: DOMINIC AMEZCUA MD NC/NTS Conf#: [id number] DID#: [id number] CC: JOVANNA JIANG MD; ALLIE TRAYLOR MD;*EndCC*
--- NOTE | 2019-01-18 18:01 | QN ---
Documentation Comment ONCOLOGY consultation dictated: 63 y/o male with metastatic colorectal carcinoma. Has hepatic mets with obstructive jaundice and recurrence at site of original colon resection . Pt was seen in 07/2018 when originally presented with obstructive jaundice. Metal stent was placed and genomic studies sent. Pt has since been seen by Dr Ethan Willard and has received chemotherapy every 2 weeks. From pt symptoms it appears he was receiving oxaliplatin. 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 Assume change was made due to disease progression but pt does know any details regarding therapy. Now admitted with worsening abd and back pain and increasing jaundice. ERCP demonstrated that stent had migrated into the common bile duct and was occluded by stone and "pus". This was cleared and a smaller plastic stent was placed thru the metal stent into the Rt hepatic duct. Bile Question has been raised as to the placement of another metal stent. Although I believe that there has been disease progression I don't know actually what chemotherapy he has received. Also, the genomic studies were never done because of inadequate tissue. For this reason, would repeat a biopsy so that the genomic studies can be done. Thank You, JACQUELINE Hargrove MD Jan 18, 2019 18:01
--- NOTE | 2019-01-18 18:51 | CONS ---
DATE OF ADMISSION: 01/16/2019 DATE OF CONSULTATION: 01/18/2019 TYPE OF CONSULTATION: Oncology REQUESTING PHYSICIAN: Dr. Traylor and Dr. Franco. Dear Drs. Traylor and Salvador: Thank you very much for asking me to see this very pleasant patient in oncologic consultation. As yo rosario may be aware, I did see this patient in 07/2018 when he was admitted with obstructive jaundice. The patient is now admitted to [facility] with complaints of increasing abdominal p ain as well as increasing icterus. As noted, the patient was seen here in 07/2018. At that time, the patient was admitted again with ev idence of obstructive jaundice and hepatic metastases. The patient apparently had a colon resection done 2 or 3 years ago at [facility]. 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 He states that he was not told to return for any type of adjuvant therapy and it is not clear wha t the stage was at that time. The patient, as mentioned, did develop obstructive jaundice. [facility] had a total bilirubin of 14.8, direct bilirubin of 12.7, AST 134, ALT 59, alkaline phosphatase was also elevated at 446. The patient was found to have a large calcified mass within the liver which measured 12.5 x 9.5 cm. This was in the left lobe of the liver. There was another mass in the right lobe of the liver. The patient also did undergo did undergo an ERCP at that time and a sphincterotomy. Metal stent was plac ed into the right hepatic duct. By the time the patient left [facility] on 07/28/2018 the bilirubin had dropped to 12.7. The AST was 136, ALT 45 and alkaline phosphatase was 446. It should be noted that during that hospitalization CEA was 345. After hospitalization, the patient was seen by Dr. Ethan Willard, who has given the patient chemothera py every 2 weeks. Unfortunately, the patient does not know what chemotherapy he received. He has no w received 2 different types of chemotherapy. The patient has received the second type of chemothera py for 2 doses, the most recent being only 2 or 3 days ago. With the patient's initial chemotherapy he did develop severe cold sensitivity, suggesting that this was oxaliplatin. The patient is not clear why the chemotherapy was switched. He and the family state that they have n ever been given any information regarding this by Dr. Willard. The patient is now admitted to [facility] on 01/16. On admission at this time, the patient had a total bilirubin of 7, AST was 272, ALT 160, alkaline phosphatase was 1095. The CEA wa s now 187. Further studies reveal a chest x-ray which is clear. Abdominal ultrasound demonstrated hepatosplenom egaly with a small echogenic nodules in the right lobe of the liver. A CT scan of the abdomen and pe lvis demonstrated a lobulated soft tissue opacity along the lateral aspect where the patient previous ly had anastomoses. This is mildly decreased as compared to when seen on previously. There are mult iple new lesions in the liver as compared to a previous examination. The other large calcified mass is unchanged. The patient has been seen in consultation again by Dr. Franco. An ERCP again was done on 01/16/2019. There was evidence of a stricture at the joshua hepatis. He put a 7-Mongolian 15 cm plastic stent into the right hepatic duct across the stricture of the joshua hepatis and was draining bile at the end of the procedure. The patient also removed multiple stools for the common duct. It appeared that the metal stent had migrated to inside the common bile duct. There was no contrast visible in the common bile duct and in the common hepatic duct because of the occlusion of the metal stent by tumor and pus. As noted, this was cleared out and the plastic stent placed through the stri cture in the right hepatic duct. The question now is whether to proceed with therapy or placing another metal stent. The patient's past history is significant only in that he did have the previous colon carcinoma 2 yea rs ago. Other medical problems have included hypertension, diabetes mellitus. The only previous greta geries have been the colon resection as well as the ERCP with stent placement. ALLERGIES: THE PATIENT HAS NO ALLERGIES. MEDICATIONS: He does take oral hypoglycemic agent. The patient has now been exposed to chemotherapy which is most likely oxaliplatin. SOCIAL HISTORY: The patient states he stopped smoking 30 years ago. He does drink on weekends. FAMILY HISTORY: Brother had a soft tissue sarcoma. PHYSICAL EXAMINATION: GENERAL: Reveals a well-developed but chronically ill-appearing male who is in no acute distress. VITAL SIGNS: Temperature 97.5 orally, pulse 85 per minute and regular, respirations 20, blood pressu re 98/60, pulse oximetry 91% on 2 liters. SKIN: No ecchymosis, no petechiae or rashes but jaundice. HEENT: Normocephalic. No evidence of trauma. The pupils are equal, round, reactive to light and ac commodation. Sclerae are icteric. Oral mucosa is moist without lesions. Tongue is well papillated. No gingival hyperplasia, no hypertrophy of Waldeyer's ring. NECK: Supple. No jugular venous distention or thyroid enlargement. No carotid bruits. CHEST: Decreased breath sounds in both bases. The diaphragms appear to be elevated. HEART: Regular sinus rhythm, no S3, S4 or murmurs. No rubs. ABDOMEN: Distended. There does appear to be ascites. EXTREMITIES: Good range of motion. No clubbing, no edema or cyanosis. No palpable cords or Homans sign. NEUROLOGIC: Normal. There is no asterixis. DISCUSSION: This patient does have metastatic colon carcinoma which has been demonstrated in the pas t. This has caused evidence of biliary obstruction. This was previously relieved by placement of a metal stent which seems to have migrated and now become occluded again. Dr. Franco has been able to pass a smaller plastic stent through the metal stent after clearing out stones and pus. He was able to pass this into the right hepatic duct. There is a stricture in the left hepatic duct. The patient states he is feeling better now that this biliary drainage has taken place. He states th at the previous back pain easily experiencing has resolved. The question now arises whether to place another metal stent as it is clear that the plastic stent wi ll only last a short period of time. It is unclear exactly what chemotherapies the patient has had. In the past month, however, the initi al chemotherapy was changed, suggesting that there was progression of disease. At this time the CT s can does show evidence of new hepatic nodules in the right lobe. All other findings are basically un changed. The patient does, however, now have a much higher alkaline phosphatase done previously as w ell as increased transaminases in spite of the improved bilirubin on admission. This may be due to t umor progression, but it may also be due just to obstructive jaundice and inflammation. When the patient was here in 07/2018 I did request genomic studies to be done on the original biopsy. Unfortunately, the amount of tissue available was insufficient for any of the testing to be done. Therefore, it is unclear whether the patient has any mutations which would allow a targeted therapy. That being the case, I do think that another biopsy should be performed. This could easily be obtain ed from liver. Then genomic studies could be done. This would include KRAS, BRAF, mismatch repair a nd/or microsatellite instability testing, PD-L1 testing and NTRK fusion testing. Once again, thank you very much for the opportunity of participating in the medical care of this very interesting and pleasant gentleman. I will be happy to follow this patient with you and assist in h is oncologic evaluation and followup as necessary. Dictated By: JACQUELINE GOODE MD SR/NTS Conf#: [id number] DID#: [id number] CC: DOMINIC FRANCO MD; ALLIE TRAYLOR MD;*EndCC*
[2019-01-18] MEDS: HYDROCODONE/APAP (5/325) TAB PO PRN (20:12)
[2019-01-18 20:31] VITALS: BP 99/58; PULSE 93; RESP 18
[2019-01-19] MEDS: PIPER-TAZO 3.375 GM IV (PMX) 100 ML IVPB SCH ×4 (00:19→17:44)
[2019-01-19 02:10] VITALS: BP 97/57; PULSE 80; RESP 16
[2019-01-19] MEDS: FAMOTIDINE 20 MG INJ IV SCH (05:27)
[2019-01-19] MEDS: DEXTROSE 5%-0.45% NACL 1,000 ML IV SCH ×3 (07:30→21:13)
[2019-01-19 07:43] VITALS: BP 97/58; PULSE 81; RESP 20
[2019-01-19] MEDS: HEPARIN 5,000 UNIT/1 ML VIAL SC SCH ×2 (08:38→21:11)
--- NOTE | 2019-01-19 09:23 | CONS ---
Consult Date/Type/Reason Admit Date/Time Jan 16, 2019 at 18:00 Initial Consult Date Date/Time of Note DATE: 01/19/19 TIME: 09:17 Subjective Pt has less abdominal pain but still distended. No fevers or chills overnight. Has not had a BM in several days-he states 6 days. Objective Vitals Vital Signs Date Temp Pulse Resp B/P (MAP) Pulse Ox O2 O2 Flow FiO2 Time Delivery Rate 01/19/19 98.1 81 20 97/58 (71) 97 07:43 01/17/19 Nasal 2.0 20:10 Cannula Intake and Output 01/18/19 01/18/19 01/19/19 1515:00 23:00 07:00 IntakeIntake Total 780 ml 1600 ml 550 ml OutputOutput Total 300 ml BalanceBalance 780 ml 1600 ml 250 ml Exam NAD/A&Ox4 OP clear but jaundiced Icteric CN2-12 intact RRR no m/g/r CTA B Abdomen-quite distended, hypoactive 1+ LE edema Results/Medications Result Diagram: 01/19/19 0447 01/19/19 0444 Results 24 hrs Laboratory Tests Test 01/19/19 04:44 01/19/19 04:47 Sodium Level 136 Potassium Level 4.1 Chloride Level 106 Carbon Dioxide Level 20 L Anion Gap 10 Blood Urea Nitrogen 31 H Creatinine 2.05 H Est Glomerular Filtrat Rate mL/min 33 L Glucose Level 176 Calcium Level 8.3 L White Blood Count 14.5 #H Red Blood Count 3.79 L Hemoglobin 11.1 L Hematocrit 33.7 L Mean Corpuscular Volume 88.9 Mean Corpuscular Hemoglobin 29.3 Mean Corpuscular Hemoglobin Concent 32.9 Red Cell Distribution Width 19.3 H Platelet Count 224 Mean Platelet Volume 8.0 Immature Granulocytes % 1.100 H Neutrophils % 88.0 H Lymphocytes % 4.5 L Monocytes % 6.2 Eosinophils % 0.1 Basophils % 0.1 Nucleated Red Blood Cells % 0.0 Immature Granulocytes # 0.160 H Neutrophils # 12.8 H Lymphocytes # 0.7 L Monocytes # 0.9 Eosinophils # 0.0 Basophils # 0.0 Nucleated Red Blood Cells # 0.0 Home Meds Discontinued Reported Medications Losartan Potassium* (Losartan Potassium*) 25 Mg Tablet, 25 MG PO DAILY 07/24/18 Felodipine* (Felodipine*) 5 Mg Tab.sr.24h, 5 MG PO DAILY 07/24/18 Discontinued Scripts Apixaban* (Eliquis*) 5 Mg Tablet, 2.5 MG PO BID for 60 Days, #120 TAB Prov:MEGHAN HAYNES MD 07/28/18 Medications Current Medications IV Flush (NS 3 ml) 3 ml PER PROTOCOL IV ; Start 01/16/19 at 19:30 Ondansetron HCl (Zofran Inj) 4 mg Q6H PRN IV NAUSEA/VOMITING; Start 01/16/19 at 19:30 Acetaminophen (Tylenol Tab) 650 mg Q6H PRN PO .PAIN 1-3 OR TEMP; Start 01/16/19 at 19:30 Acetaminophen/ Hydrocodone Bitart ([place] (5/325)) 1 tab Q6H PRN PO .MOD PAIN 4- 6 Last administered on 01/18/19 20:12; Admin Dose 1 TAB; Start 01/16/19 at 19:30 Morphine Sulfate (morphine) 2 mg Q4H PRN IV .SEVERE PAIN 7-10 Last administered on 01/16/19at 21:27; Admin Dose 2 MG; Start 01/16/19 at 19:30 Docusate Sodium (Colace) 100 mg Q12H PRN PO .CONSTIPATION Last administered on 01/18/19 16:26; Admin Dose 100 MG; Start 01/16/19 at 19:30 Magnesium Hydroxide (Milk Of Mag) 30 ml DAILY PRN PO .CONSTIPATION Last administered on 01/18/19 16:26; Admin Dose 30 ML; Start 01/16/19 at 19:30 Heparin Sodium (Porcine) (Heparin (5000 Units/1ml)) 5,000 unit Q12 SC Last administered on 01/19/19 08:38; Admin Dose 5,000 UNIT; Start 01/16/19 at 21:00 Lorazepam (Ativan) 0.5 mg Q6H PRN IV ANXIETY; Start 01/16/19 at 19:30 Albuterol/ Ipratropium (Duoneb) 3 ml Q4H RESP THERAPY PRN HHN SHORTNESS OF BREATH; Start 01/16/19 at 19:30 Piperacillin Sod/ Tazobactam Sod 100 ml @ 200 mls/hr Q6 IVPB Last administered on 8/3/19at 05:27; Admin Dose 200 MLS/HR; Start 01/17/19 at 00:00 Hydralazine HCl (Apresoline) 10 mg Q6H PRN IV ELEVATED BLOOD PRESSURE; Start 01/16/19 at 19:30 Nitroglycerin (Nitroglycerin (Sl Tab) 0.4 Mg) 1 tab Q5M PRN SL ANGINA; Start 01/16/19 at 19:30 Dextrose/Sodium Chloride 1,000 ml @ 100 mls/hr Q10H IV Last administered on 01/19/19at 07:30; Admin Dose 100 MLS/HR; Start 01/17/19 at 16:00 Famotidine (Pepcid Iv) 20 mg 0600 IV Last administered on 01/19/19at 05:27; Admin Dose 20 MG; Start 01/19/19 at 06:00 Lactulose (Enulose) 20 gm Q6H PRN PO CONSTIPATION; Start 01/19/19 at 09:30; Status UNV Assessment/Plan Assessment/Plan (Daily) IMPRESSION: 1. Metastatic colon cancer with extensive mets to the liver-treated by Dr. Ethan Willard but details not clear. Dr. Rogers is requesting outside records. 2. Obstuctive jaundice-reason for admission-leading to cholangitis. S/p ERCP by Dr. Franco with removal of pus/sludge/tumor and placement of plastic stent- previously inserted metal stent had migrated 3. Secondary splenomegaly 4. Portal vein thrombosis-previously noted-but not clearly seen on recent imaging but done without contrast due to elevated creatinine 5. Renal impairment-unclear if new or chronic 6. Rising WBC overnight but pt appears non-toxic. Remains on Zosyn 7.Constipation RECOMMENDATIONS 1. Cont Zosyn for now 2. Agree with repeating biopsy to obtain additional information regarding colon cancer genetics (MSI status, BRAF, NRAS, KRAS, HER2 amplification, etc). 3. Obtain outside oncology records 4. Recommend DVT ppx at the very least-Lovenox 30mg for renal impairment 5. Lactulose for constipation ARIANNA SIMMONS Jan 19, 2019 09:23
[2019-01-19] MEDS: LACTULOSE 30ML CUP PO PRN (09:35)
[2019-01-19 13:50] VITALS: BP 100/59; PULSE 80; RESP 20
--- NOTE | 2019-01-19 14:57 | PN ---
Date/Time of Note Date/Time of Note DATE: 01/19/19 TIME: 14:55 Assessment/Plan VTE Prophylaxis Risk score (from Ns)>0 risk: 6 SCD applied (from Ns): No SCD contraindicated: other (no) Pharmacological prophylaxis: heparin Lines/Catheters IV [facility]from [facility] Peripheral IV Urinary Cath still in place: No Assessment/Plan Assessment/Plan 1. Obstructive jaundice from metastatic colon cancer, s/p stent in 07/2018, repeat ERCP with CBD stent on 01/17/2019, follow up with Salvador Cooper, Dr. Rogers will see patient for either continuing chemo or go for hospice care, then decide whether to repeat ERCP for two metal stents for CBD obstruction 2. Acute cholangitis, on antibiotics 3. Colon cancer with mets to the liver and lungs, s/p colon resection 3 years ago, but diagnosed with liver mets in July 2018, on chemotherapy with Dr.Nader Wright ([phone]) who is on vacation and will be back on . 4. Acute on renal insufficiency, IVF, follow up with BMP 4. Portal vein thrombosis: diagnosed in 07/2018 5. Normocytic anemia due to malignancy, follow up with H/H 6. DVT prophylaxis: heparin SQ Dispo: Well appearing. Anticipate discharge within 24-48 hours, pending CT- guided liver biopsy. Result Diagram: 01/19/19 0447 01/19/19 0444 Subjective 24 Hr Interval Summary Free Text/Dictation No acute overnight events. Patient complains of poor appetite, no bowel movements for several days. However no nausea, pain adequatelly controlled. Exam/Review of Systems Exam Vitals Vital Signs Date Temp Pulse Resp B/P (MAP) Pulse Ox O2 O2 Flow FiO2 Time Delivery Rate 01/19/19 97.8 80 20 100/59 95 13:50 (73) 01/17/19 Nasal 2.0 20:10 Cannula Intake and Output 01/18/19 01/18/19 01/19/19 1515:00 23:00 07:00 IntakeIntake Total 780 ml 1600 ml 550 ml OutputOutput Total 300 ml BalanceBalance 780 ml 1600 ml 250 ml Exam Constitutional: alert, oriented, well developed Head: normocephalic, atraumatic Eyes: nl conjunctiva, EOMI, nl lids ENMT: nl external ears & nose, nl lips & teeth, nl nasal mucosa & septum Neck: supple, non-tender Respiratory: clear to auscultation, normal air movement; No congested cough, No crackles/rales, No diminished breath sounds, No intercostal retraction, No labored breathing, No respirations, No tactile fremitus, No wheezing, No other Cardiovascular: regular rate and rhythm, nl pulses; No bruits, No diastolic murmur, No edema, No gallop, No irregular rhythm, No jugular venous distention (JVD), No murmurs/extra sounds, No rub, No systolic murmur, No S3, No S4, No other Gastrointestinal: distended, tympanic, nontender throughout. Musculoskeletal: nl extremities to inspection Extremities: normal pulses; No calf tenderness, No cyanosis, No clubbing, No edema, No pitting pedal edema, No palpable cord, No tenderness, No other Results Results 24hrs Laboratory Tests Test 01/19/19 04:44 01/19/19 04:47 Sodium Level 136 Potassium Level 4.1 Chloride Level 106 Carbon Dioxide Level 20 L Anion Gap 10 Blood Urea Nitrogen 31 H Creatinine 2.05 H Est Glomerular Filtrat Rate mL/min 33 L Glucose Level 176 Calcium Level 8.3 L White Blood Count 14.5 #H Red Blood Count 3.79 L Hemoglobin 11.1 L Hematocrit 33.7 L Mean Corpuscular Volume 88.9 Mean Corpuscular Hemoglobin 29.3 Mean Corpuscular Hemoglobin Concent 32.9 Red Cell Distribution Width 19.3 H Platelet Count 224 Mean Platelet Volume 8.0 Immature Granulocytes % 1.100 H Neutrophils % 88.0 H Lymphocytes % 4.5 L Monocytes % 6.2 Eosinophils % 0.1 Basophils % 0.1 Nucleated Red Blood Cells % 0.0 Immature Granulocytes # 0.160 H Neutrophils # 12.8 H Lymphocytes # 0.7 L Monocytes # 0.9 Eosinophils # 0.0 Basophils # 0.0 Nucleated Red Blood Cells # 0.0 Medications Medication Current Medications IV Flush (NS 3 ml) 3 ml PER PROTOCOL IV ; Start 01/16/19 at 19:30 Ondansetron HCl (Zofran Inj) 4 mg Q6H PRN IV NAUSEA/VOMITING; Start 01/16/19 at 19:30 Acetaminophen (Tylenol Tab) 650 mg Q6H PRN PO .PAIN 1-3 OR TEMP; Start 01/16/19 at 19:30 Acetaminophen/ Hydrocodone Bitart ([place] (5/325)) 1 tab Q6H PRN PO .MOD PAIN 4- 6 Last administered on 01/18/19 20:12; Admin Dose 1 TAB; Start 01/16/19 at 19:30 Morphine Sulfate (morphine) 2 mg Q4H PRN IV .SEVERE PAIN 7-10 Last administered on 01/16/19 21:27; Admin Dose 2 MG; Start 01/16/19 at 19:30 Docusate Sodium (Colace) 100 mg Q12H PRN PO .CONSTIPATION Last administered on 01/18/19 16:26; Admin Dose 100 MG; Start 01/16/19 at 19:30 Magnesium Hydroxide (Milk Of Mag) 30 ml DAILY PRN PO .CONSTIPATION Last administered on 01/18/19 16:26; Admin Dose 30 ML; Start 01/16/19 at 19:30 Heparin Sodium (Porcine) (Heparin (5000 Units/1ml)) 5,000 unit Q12 SC Last administered on 01/19/19 08:38; Admin Dose 5,000 UNIT; Start 01/16/19 at 21:00 Lorazepam (Ativan) 0.5 mg Q6H PRN IV ANXIETY; Start 01/16/19 at 19:30 Albuterol/ Ipratropium (Duoneb) 3 ml Q4H RESP THERAPY PRN HHN SHORTNESS OF BREATH; Start 01/16/19 at 19:30 Piperacillin Sod/ Tazobactam Sod 100 ml @ 200 mls/hr Q6 IVPB Last administered on 01/19/19 12:14; Admin Dose 200 MLS/HR; Start 01/17/19 at 00:00 Hydralazine HCl (Apresoline) 10 mg Q6H PRN IV ELEVATED BLOOD PRESSURE; Start 01/16/19 at 19:30 Nitroglycerin (Nitroglycerin (Sl Tab) 0.4 Mg) 1 tab Q5M PRN SL ANGINA; Start 01/16/19 at 19:30 Dextrose/Sodium Chloride 1,000 ml @ 100 mls/hr Q10H IV Last administered on 01/19/19 07:30; Admin Dose 100 MLS/HR; Start 8/1/19 at 16:00 Famotidine (Pepcid Iv) 20 mg 0600 IV Last administered on 01/19/19at 05:27; Admin Dose 20 MG; Start 01/19/19 at 06:00 Lactulose (Enulose) 20 gm Q6H PRN PO CONSTIPATION Last administered on 01/19/19at 09:35; Admin Dose 20 GM; Start 01/19/19 at 09:30 LINNEA LONGORIA MD Jan 19, 2019 14:57
[2019-01-19] MEDS: HYDROCODONE/APAP (5/325) TAB PO PRN (15:49)
[2019-01-19 19:53] VITALS: BP 109/57; PULSE 93; RESP 19
[2019-01-20] MEDS: PIPER-TAZO 3.375 GM IV (PMX) 100 ML IVPB SCH ×5 (00:38→23:24)
[2019-01-20 01:56] VITALS: BP 109/64; PULSE 88; RESP 17
[2019-01-20] MEDS ORDERED: METHYLPREDNISOLONE 125 MG INJ IM ONE (05:30)
[2019-01-20] MEDS: FAMOTIDINE 20 MG INJ IV SCH (05:38)
[2019-01-20] MEDS: LACTULOSE 30ML CUP PO PRN (07:00)
[2019-01-20 07:42] VITALS: BP 114/68; PULSE 106; RESP 20
[2019-01-20] MEDS: HEPARIN 5,000 UNIT/1 ML VIAL SC SCH ×2 (09:11→21:29)
[2019-01-20] MEDS: DEXTROSE 5%-0.45% NACL 1,000 ML IV SCH ×2 (09:28→12:28)
[2019-01-20 09:32] VITALS: PULSE 98
--- NOTE | 2019-01-20 12:11 | CONS ---
DATE OF ADMISSION: 01/16/2019 DATE OF CONSULTATION: TYPE OF CONSULTATION: The patient at this time appears to be dyspneic. HISTORY OF PRESENT ILLNESS: Patient was admitted with obstructive jaundice with ____. An ERCP was d one, large amount of pus was drained from the common bile duct. Multiple stones were removed from th e common bile duct and he was found to have what appears like a stricture at the confluence of the le ft and right hepatic ducts with some difficulty. A 7-[place] plastic stent was placed into the common right hepatic duct across the stricture, across the ampulla into the duodenum. LABORATORY WORKUP: The bilirubin on admission was 7 and then it came down to 6.1, today is 3.4. His WBC count improved to 11,900. PHYSICAL EXAM: VITAL SIGNS: Clinically at this time, he is dyspneic and temperature is 98.6, blood pressure 114/68. CARDIOVASCULAR EXAM: Normal heart sounds, with tachycardia. RESPIRATORY SYSTEM: Occasional wheezing heard bilaterally. ABDOMEN: Showed a massive distention. LABORATORY WORKUP: Essentially as mentioned above. CEA is elevated, which is 187. IMPRESSION: He has history of colorectal cancer resection. PLAN: At this time, recommend paracentesis. Dictated By: DOMINIC GONZALEZ/JAMES Conf#: [id number] DID#: [id number] CC: JOVANNA JIANG MD; LINNEA LONGORIA MD;*[facility]*
[2019-01-20] MEDS: LACTULOSE 30ML CUP PO SCH ×2 (12:26→21:26)
[2019-01-20 13:00] VITALS: BP 116/72; PULSE 100; RESP 18
[2019-01-20 14:30] VITALS: BP 112/69; PULSE 96; RESP 18
[2019-01-20] MEDS ORDERED: LIDOCAINE 1% (MPF) 5 ML VIAL ONE (15:05)
--- NOTE | 2019-01-20 15:07 | PN ---
Date/Time of Note Date/Time of Note DATE: 01/20/19 TIME: 15:05 Assessment/Plan VTE Prophylaxis Risk score (from Ns)>0 risk: 6 SCD applied (from Ns): No SCD contraindicated: other (no) Pharmacological prophylaxis: NA/contraindicated Pharm contraindication: low risk/ambulating Lines/Catheters IV [facility]ter Type (from [facility] port a cath Urinary Cath still in place: No Assessment/Plan Assessment/Plan 1. Obstructive jaundice from metastatic colon cancer, s/p stent in 07/2018, repeat ERCP with CBD stent on 01/17/2019, follow up with Salvador Cooper, Dr. Rogers will see patient for either continuing chemo or go for hospice care, then decide whether to repeat ERCP for two metal stents for CBD obstruction 2. Acute cholangitis, on antibiotics 3. Colon cancer with mets to the liver and lungs, s/p colon resection 3 years ago, but diagnosed with liver mets in July 2018, on chemotherapy with Dr.Nader Wright ([phone]) who is on vacation and will be back on . 4. Acute on renal insufficiency, IVF, follow up with BMP 4. Portal vein thrombosis: diagnosed in 07/2018 5. Normocytic anemia due to malignancy, follow up with H/H 6. DVT prophylaxis: heparin SQ Dispo: Well appearing. Anticipate discharge within 24-48 hours, pending CT-andrey ded liver biopsy. Result Diagram: 01/20/19 0533 01/20/19 05 Subjective 24 Hr Interval Summary Free Text/Dictation No acute overnight events. Got US-guided paracentesis today. No pain. He still has poor appetite. Exam/Review of Systems Exam Vitals Vital Signs Date Temp Pulse Resp B/P (MAP) Pulse Ox O2 O2 Flow FiO2 Time Delivery Rate 01/20/19 97.6 100 18 116/72 93 13:00 (87) 01/17/19 Nasal 2.0 20:10 Cannula Intake and Output 01/19/19 01/19/19 01/20/19 1515:00 23:00 07:00 IntakeIntake Total 1790 ml 1740 ml 1050 ml OutputOutput Total 1800 ml 200 ml 250 ml BalanceBalance -10 ml 1540 ml 800 ml Exam Constitutional: alert, oriented, well developed Head: normocephalic, atraumatic Eyes: nl conjunctiva, EOMI, nl lids ENMT: nl external ears & nose, nl lips & teeth, nl nasal mucosa & septum Neck: supple, non-tender Respiratory: clear to auscultation, normal air movement; No congested cough, No crackles/rales, No diminished breath sounds, No intercostal retraction, No labored breathing, No respirations, No tactile fremitus, No wheezing, No other Cardiovascular: regular rate and rhythm, nl pulses; No bruits, No diastolic murmur, No edema, No gallop, No irregular rhythm, No jugular venous distention (JVD), No murmurs/extra sounds, No rub, No systolic murmur, No S3, No S4, No other Gastrointestinal: Soft, slightly distended, nontender throughout. RLQ paracentesis site clean appearing. Musculoskeletal: nl extremities to inspection Extremities: normal pulses; No calf tenderness, No cyanosis, No clubbing, No edema, No pitting pedal edema, No palpable cord, No tenderness, No other Results Results 24hrs Laboratory Tests Test 01/20/19 05:33 White Blood Count 11.9 H Red Blood Count 4.43 L Hemoglobin 12.9 L Hematocrit 39.4 L Mean Corpuscular Volume 88.9 Mean Corpuscular Hemoglobin 29.1 Mean Corpuscular Hemoglobin Concent 32.7 Red Cell Distribution Width 19.9 H Platelet Count 251 Mean Platelet Volume 8.0 Immature Granulocytes % 0.800 H Neutrophils % 83.1 H Lymphocytes % 7.0 L Monocytes % 7.7 Eosinophils % 1.1 Basophils % 0.3 Nucleated Red Blood Cells % 0.0 Immature Granulocytes # 0.090 H Neutrophils # 9.9 H Lymphocytes # 0.8 Monocytes # 0.9 Eosinophils # 0.1 Basophils # 0.0 Nucleated Red Blood Cells # 0.0 Sodium Level 135 Potassium Level 3.9 Chloride Level 106 Carbon Dioxide Level 22 Anion Gap 7 Blood Urea Nitrogen 25 H Creatinine 1.44 H Est Glomerular Filtrat Rate mL/min 50 L Glucose Level 123 # Calcium Level 8.7 Total Bilirubin 3.4 H Direct Bilirubin 2.20 H Indirect Bilirubin 1.2 H Aspartate Amino Transf (AST/SGOT) 223 H Alanine Aminotransferase (ALT/SGPT) 129 H Alkaline Phosphatase 1159 H Total Protein 8.0 Albumin 2.6 L Globulin 5.40 H Albumin/Globulin Ratio 0.48 Medications Medication Current Medications IV Flush (NS 3 ml) 3 ml PER PROTOCOL IV ; Start 01/16/19 at 19:30 Ondansetron HCl (Zofran Inj) 4 mg Q6H PRN IV NAUSEA/VOMITING; Start 01/16/19 at 19:30 Acetaminophen (Tylenol Tab) 650 mg Q6H PRN PO .PAIN 1-3 OR TEMP; Start 01/16/19 at 19:30 Acetaminophen/ Hydrocodone Bitart ([place] (5/325)) 1 tab Q6H PRN PO .MOD PAIN 4- 6 Last administered on 01/19/19 15:49; Admin Dose 1 TAB; Start 01/16/19 at 19:30 Morphine Sulfate (morphine) 2 mg Q4H PRN IV .SEVERE PAIN 7-10 Last administered on 01/16/19 21:27; Admin Dose 2 MG; Start 01/16/19 at 19:30 Docusate Sodium (Colace) 100 mg Q12H PRN PO .CONSTIPATION Last administered on 01/18/19 16:26; Admin Dose 100 MG; Start 01/16/19 at 19:30 Magnesium Hydroxide (Milk Of Mag) 30 ml DAILY PRN PO .CONSTIPATION Last administered on 01/18/19 16:26; Admin Dose 30 ML; Start 01/16/19 at 19:30 Heparin Sodium (Porcine) (Heparin (5000 Units/1ml)) 5,000 unit Q12 SC Last administered on 01/20/19 09:11; Admin Dose 5,000 UNIT; Start 01/16/19 at 21:00 Lorazepam (Ativan) 0.5 mg Q6H PRN IV ANXIETY; Start 01/16/19 at 19:30 Albuterol/ Ipratropium (Duoneb) 3 ml Q4H RESP THERAPY PRN HHN SHORTNESS OF BREATH; Start 01/16/19 at 19:30 Piperacillin Sod/ Tazobactam Sod 100 ml @ 200 mls/hr Q6 IVPB Last administered on 01/20/19 12:26; Admin Dose 200 MLS/HR; Start 01/17/19 at 00:00 Hydralazine HCl (Apresoline) 10 mg Q6H PRN IV ELEVATED BLOOD PRESSURE; Start 01/16/19 at 19:30 Nitroglycerin (Nitroglycerin (Sl Tab) 0.4 Mg) 1 tab Q5M PRN SL ANGINA; Start 01/16/19 at 19:30 Dextrose/Sodium Chloride 1,000 ml @ 100 mls/hr Q10H IV Last administered on 01/20/19at 09:28; Admin Dose 100 MLS/HR; Start 01/17/19 at 16:00 Famotidine (Pepcid Iv) 20 mg 0600 IV Last administered on 01/20/19at 05:38; Admin Dose 20 MG; Start 01/19/19 at 06:00 Lactulose (Enulose) 20 gm TID PO Last administered on 01/20/19at 12:26; Admin Dose 20 GM; Start 01/20/19 at 13:00 LINNEA LONGORIA MD Jan 20, 2019 15:07
[2019-01-20 19:45] VITALS: BP 116/62; PULSE 108; RESP 16
[2019-01-21 01:10] VITALS: BP 117/67; PULSE 105; RESP 16
[2019-01-21] MEDS: PIPER-TAZO 3.375 GM IV (PMX) 100 ML IVPB SCH ×3 (05:15→17:48)
[2019-01-21] MEDS: FAMOTIDINE 20 MG INJ IV SCH (05:15)
[2019-01-21 07:50] VITALS: BP 111/65; PULSE 106; RESP 18
[2019-01-21] MEDS: LACTULOSE 30ML CUP PO SCH ×3 (08:27→20:44)
[2019-01-21] MEDS: HEPARIN 5,000 UNIT/1 ML VIAL SC SCH ×3 (08:30→20:44)
[2019-01-21 09:12] VITALS: PULSE 100
[2019-01-21 14:56] VITALS: BP 120/69; PULSE 99; RESP 18
--- NOTE | 2019-01-21 15:14 | PN ---
Date/Time of Note Date/Time of Note DATE: 01/21/19 TIME: 15:12 Assessment/Plan VTE Prophylaxis Risk score (from [facility])>0 risk: 3 SCD applied (from [facility]): Yes Pharmacological prophylaxis: NA/contraindicated Pharm contraindication: surgical contra Lines/Catheters IV [facility]ter Type (from [facility]): Port-a-cath Urinary Cath still in place: No Assessment/Plan Assessment/Plan 1. Obstructive jaundice from metastatic colon cancer, s/p stent in 07/2018, repeat ERCP with CBD stent on 01/17/2019, follow up with Slavador Cooper, Dr. Rogers will see patient for either continuing chemo or go for hospice care, then decide whether to repeat ERCP for two metal stents for CBD obstruction 2. Acute cholangitis, on antibiotics 3. Colon cancer with mets to the liver and lungs, s/p colon resection 3 years ago, but diagnosed with liver mets in July 2018, on chemotherapy with Dr.Nader Wright ([phone]) who is on vacation and will be back on . 4. Acute on renal insufficiency, IVF, follow up with [facility] 4. Portal vein thrombosis: diagnosed in 07/2018 5. Normocytic anemia due to malignancy 6. DVT prophylaxis: heparin SQ Dispo: Well appearing. Anticipate discharge within 24-48 hours, pending CT- guided liver biopsy. Result Diagram: 01/21/19 0509 01/21/19 0509 Subjective 24 Hr Interval Summary Free Text/Dictation No acute overnight events. Patient doing well post paracentesis, no complaints. Still with poor appetite. Exam/Review of Systems Exam Vitals Vital Signs Date Temp Pulse Resp B/P (MAP) Pulse Ox O2 O2 Flow FiO2 Time Delivery Rate 01/21/19 98.4 99 18 120/69 93 14:56 (86) 01/17/19 Nasal 2.0 20:10 Cannula Intake and Output 01/20/19 01/20/19 01/21/19 1515:00 23:00 07:00 IntakeIntake Total 730 ml 860 ml 440 ml OutputOutput Total 1100 ml 200 ml 500 ml BalanceBalance -370 ml 660 ml -60 ml Exam Constitutional: alert, oriented, well developed Head: normocephalic, atraumatic Eyes: nl conjunctiva, EOMI, nl lids ENMT: nl external ears & nose, nl lips & teeth, nl nasal mucosa & septum Neck: supple, non-tender Respiratory: clear to auscultation, normal air movement; No congested cough, No crackles/rales, No diminished breath sounds, No intercostal retraction, No labored breathing, No respirations, No tactile fremitus, No wheezing, No other Cardiovascular: regular rate and rhythm, nl pulses; No bruits, No diastolic murmur, No edema, No gallop, No irregular rhythm, No jugular venous distention (JVD), No murmurs/extra sounds, No rub, No systolic murmur, No S3, No S4, No other Gastrointestinal: Soft, slightly distended, nontender throughout. RLQ paracentesis site clean appearing. Musculoskeletal: nl extremities to inspection Extremities: normal pulses; No calf tenderness, No cyanosis, No clubbing, No edema, No pitting pedal edema, No palpable cord, No tenderness, No other Results Results 24hrs Laboratory Tests Test 01/21/19 05:09 White Blood Count 14.6 #H Red Blood Count 4.28 L Hemoglobin 12.6 L Hematocrit 37.9 L Mean Corpuscular Volume 88.6 Mean Corpuscular Hemoglobin 29.4 Mean Corpuscular Hemoglobin Concent 33.2 Red Cell Distribution Width 19.9 H Platelet Count 206 Mean Platelet Volume 7.8 Immature Granulocytes % 1.000 H Neutrophils % 81.2 H Lymphocytes % 8.6 L Monocytes % 8.0 Eosinophils % 1.0 Basophils % 0.2 Nucleated Red Blood Cells % 0.0 Immature Granulocytes # 0.150 H Neutrophils # 11.9 H Lymphocytes # 1.3 Monocytes # 1.2 H Eosinophils # 0.1 Basophils # 0.0 Nucleated Red Blood Cells # 0.0 Sodium Level 136 Potassium Level 3.9 Chloride Level 108 Carbon Dioxide Level 22 Anion Gap 6 Blood Urea Nitrogen 17 Creatinine 0.95 Est Glomerular Filtrat Rate mL/min > 60 Glucose Level 117 Calcium Level 8.6 Medications Medication Current Medications IV Flush (NS 3 ml) 3 ml PER PROTOCOL IV ; Start 01/16/19 at 19:30 Ondansetron HCl (Zofran Inj) 4 mg Q6H PRN IV NAUSEA/VOMITING; Start 01/16/19 at 19:30 Acetaminophen (Tylenol Tab) 650 mg Q6H PRN PO .PAIN 1-3 OR TEMP; Start 01/16/19 at 19:30 Acetaminophen/ Hydrocodone Bitart ([place] (5/325)) 1 tab Q6H PRN PO .MOD PAIN 4- 6 Last administered on 01/19/19 15:49; Admin Dose 1 TAB; Start 01/16/19 at 19:30 Morphine Sulfate (morphine) 2 mg Q4H PRN IV .SEVERE PAIN 7-10 Last administered on 01/16/19 21:27; Admin Dose 2 MG; Start 01/16/19 at 19:30 Docusate Sodium (Colace) 100 mg Q12H PRN PO .CONSTIPATION Last administered on 01/18/19 16:26; Admin Dose 100 MG; Start 01/16/19 at 19:30 Magnesium Hydroxide (Milk Of Mag) 30 ml DAILY PRN PO .CONSTIPATION Last administered on 01/18/19 16:26; Admin Dose 30 ML; Start 01/16/19 at 19:30 Heparin Sodium (Porcine) (Heparin (5000 Units/1ml)) 5,000 unit Q12 SC Last administered on 01/20/19 21:29; Admin Dose 5,000 UNIT; Start 01/16/19 at 21:00 Lorazepam (Ativan) 0.5 mg Q6H PRN IV ANXIETY; Start 01/16/19 at 19:30 Albuterol/ Ipratropium (Duoneb) 3 ml Q4H RESP THERAPY PRN HHN SHORTNESS OF BREATH; Start 01/16/19 at 19:30 Piperacillin Sod/ Tazobactam Sod 100 ml @ 200 mls/hr Q6 IVPB Last administered on 01/21/19at 12:40; Admin Dose 200 MLS/HR; Start 01/17/19 at 00:00 Hydralazine HCl (Apresoline) 10 mg Q6H PRN IV ELEVATED BLOOD PRESSURE; Start 01/16/19 at 19:30 Nitroglycerin (Nitroglycerin (Sl Tab) 0.4 Mg) 1 tab Q5M PRN SL ANGINA; Start 01/16/19 at 19:30 Famotidine (Pepcid Iv) 20 mg 0600 IV Last administered on 01/21/19 05:15; Admin Dose 20 MG; Start 01/19/19 at 06:00 Lactulose (Enulose) 20 gm TID PO Last administered on 01/21/19at 12:40; Admin Dose 20 GM; Start 01/20/19 at 13:00 LINNEA LONGORIA MD Jan 21, 2019 15:14
[2019-01-21 19:26] VITALS: BP 117/64; PULSE 100; RESP 16
[2019-01-22] MEDS: PIPER-TAZO 3.375 GM IV (PMX) 100 ML IVPB SCH ×5 (00:10→23:35)
[2019-01-22 01:37] VITALS: BP 111/61; PULSE 100; RESP 16
[2019-01-22] MEDS: FAMOTIDINE 20 MG INJ IV SCH (05:09)
--- NOTE | 2019-01-22 06:10 | PN ---
DATE: 01/21/2019 SUBJECTIVE: The patient seems to be comfortable now. He underwent 5 liters of paracentesis. The pa jose seems to be comfortable at this time. OBJECTIVE: VITAL SIGNS: Temperature is 98.4, pulse is 99, blood pressure 120/69. GENERAL: It is to be noted on physical examination, he is jaundiced. CARDIOVASCULAR: Normal heart sounds. RESPIRATORY: Normal breath sounds. ABDOMEN: Shows soft abdomen with a lot less of ascites because of the paracentesis. LABORATORY WORKUP: WBC count is down to 14,600. In fact, it has gone up since yesterday, hemoglobin 12.6. Bilirubin as of yesterday is 3.4, alkaline phosphatase is 1159, AST 223, ALT 129. CLINICAL IMPRESSION: The patient has evidence of decrease in the liver functions and decrease in maxime irubin, decrease in jaundice, indicating that the stent is probably working. There seems to be some drainage occurring from the liver to the duodenum through the 7-[place] stent. This may not completel y be normalized because of extensive metastatic disease in the liver. Still diagnosis seems to be metastatic disease to the liver from the colon carcinoma. I ordered a CA 19-9 and alpha fetoprotein just in case there is evidence of hepatoma or cholangiocarcinoma which ar e probably unlikely. PLAN: Continue to observe the patient. Liver biopsy has been ordered for the genomic studies by Dr. Rogers. There is a thought that comes to my mind is because of the malignant obstruction whether he is a cand idate for radiofrequency treatment by inserting Habib catheter into the common hepatic duct and area of the joshua hepatis, thinking that it would hopefully dissolve the tumor to keep the passages open. This is a thought that needs to be considered. However because of the cholangitis whether that is appropriate or not is at this time needs to be con sidered. We will follow the patient. Dictated By: DOMINIC AMEZCUA MD NC/NTS Conf#: [id number] DID#: [id number] CC: JOVANNA JIANG MD; LINNEA LONGORIA MD;*EndCC*
--- NOTE | 2019-01-22 06:22 | PN ---
DATE: 01/21/2019 SUBJECTIVE: The patient is resting quietly. He has no new complaints. The patient did undergo a pa racentesis on 01/20/2019. This included the removal of 5000 mL of fluid. OBJECTIVE: GENERAL: The patient is a well-developed, chronically ill-appearing male who is in no acute distress . VITAL SIGNS: Temperature 98.4 orally, pulse 99 per minute and regular, respirations 18, blood pressu re 120/69, pulse oximetry 93%. SKIN: No ecchymosis, no petechiae or rashes. HEENT: Normocephalic. No evidence of trauma. Pupils equal, round, react to light and accommodation . Sclerae are slightly icteric. Oral mucosa is moist without lesions. Tongue well papillated. No gingival hyperplasia, no hypertrophy of Waldeyer's ring. NECK: Supple, no jugular venous distention or thyroid enlargement. No carotid bruits. CHEST: Clear to auscultation and percussion, but decreased breath sounds in both bases with elevated diaphragms. HEART: Sinus tachycardia. No S3, S4 or murmurs. ABDOMEN: Distended. There is ascites. EXTREMITIES: Good range of motion, no clubbing, edema or cyanosis noted. No palpable cords or Bonilla s sign. NEUROLOGIC: Normal. Ascitic fluid of 01/20/2019 demonstrated 28% polys and 72% mononuclear cells. Total white count was only 5540 with no red blood cells. Ascitic fluid glucose was 114, total protein was 2.1. Total bilirubin 3.4, direct bilirubin 2.0. AST 2223, ALT 129, alkaline phosphatase 1159. ASSESSMENT: 1. Metastatic colorectal carcinoma. 2. Obstructive jaundice secondary to #1. DISCUSSION: As noted on the original consultation, I do feel that more tissue will be necessary in o rder to perform genomic studies to determine if this patient may be eligible for some type of more "t argeted" therapy. The ascitic fluid removed yesterday was a transudate and contained only 554 white cells. A 71.9% wer e mononuclear cells, but I do not feel this will be adequate for cytology or could perform genomic st udies even if the cytology is positive. I would favor a liver biopsy in order to obtain adequate tissue. The patient could be discharged following liver biopsy to be followed up by his oncologist who would be given results of any genomic studies done. Dictated By: JACQUELINE GOODE MD SR/NTS Conf#: [id number] DID#: [id number] CC: JOVANNA JIANG MD;*[facility]*
[2019-01-22 07:55] VITALS: BP 117/62; PULSE 103; RESP 20
[2019-01-22] MEDS: LACTULOSE 30ML CUP PO SCH ×3 (09:00→21:10)
[2019-01-22] MEDS: HEPARIN 5,000 UNIT/1 ML VIAL SC SCH ×2 (09:00→21:14)
[2019-01-22] MEDS ORDERED: MIDAZOLAM 1 MG/ML 2 ML INJ ONE (09:47)
[2019-01-22] MEDS ORDERED: FENTAnyl 50 MCG/ML VIAL ONE (09:47)
[2019-01-22] MEDS ORDERED: LIDOCAINE 1% (MDV) 20 ML INJ ONE (10:17)
[2019-01-22] MEDS ORDERED: FLUMAZENIL 0.5 MG INJ ONE (10:44)
[2019-01-22] MEDS ORDERED: GELATIN 12MM X 7 MM SPONGE ONE (10:55)
[2019-01-22 14:25] VITALS: BP 111/64; PULSE 103; RESP 18
--- NOTE | 2019-01-22 14:56 | PN ---
Date/Time of Note Date/Time of Note DATE: 01/22/19 TIME: 14:53 Assessment/Plan VTE Prophylaxis Risk score (from Ns)>0 risk: 5 SCD applied (from [facility]): No SCD contraindicated: other (no) Pharmacological prophylaxis: heparin Lines/Catheters IV Catheter Type (from [facility]): PORT A CATH Urinary Cath still in place: No Assessment/Plan Assessment/Plan 1. Obstructive jaundice from metastatic colon cancer, s/p stent in 07/2018, repeat ERCP with CBD stent on 01/17/2019, follow up with Salvador Cooper, Dr. Rogers will see patient for either continuing chemo or go for hospice care, then decide whether to repeat ERCP for two metal stents for CBD obstruction 2. Acute cholangitis, on antibiotics 3. Colon cancer with mets to the liver and lungs, s/p colon resection 3 years ago, but diagnosed with liver mets in July 2018, on chemotherapy with Dr.Nader Wright ([phone]) who is on vacation and will be back on . 4. Acute on renal insufficiency, IVF, follow up with [facility] 4. Portal vein thrombosis: diagnosed in 07/2018 5. Normocytic anemia due to malignancy 6. DVT prophylaxis: heparin SQ Dispo: Well appearing. Anticipate discharge within 24-48 hours on short course of antibiotics for cholangitis. Result Diagram: 01/22/19 0501/22/19 0521 Subjective 24 Hr Interval Summary Free Text/Dictation No acute overnight events. Patient still has poor appetite but he's eating the Boost. To liver biopsy today. Exam/Review of Systems Exam Vitals Vital Signs Date Temp Pulse Resp B/P (MAP) Pulse Ox O2 O2 Flow FiO2 Time Delivery Rate 01/22/19 97.5 103 20 117/62 97 07:55 (80) Intake and Output 01/21/19 01/21/19 01/22/19 1515:00 23:00 07:00 IntakeIntake Total 820 ml 340 ml 460 ml OutputOutput Total 1050 ml 600 ml 300 ml BalanceBalance -230 ml -260 ml 160 ml Exam Constitutional: alert, oriented, well developed Head: normocephalic, atraumatic Eyes: nl conjunctiva, EOMI, nl lids ENMT: nl external ears & nose, nl lips & teeth, nl nasal mucosa & septum Neck: supple, non-tender Respiratory: clear to auscultation, normal air movement; No congested cough, No crackles/rales, No diminished breath sounds, No intercostal retraction, No labored breathing, No respirations, No tactile fremitus, No wheezing, No other Cardiovascular: regular rate and rhythm, nl pulses; No bruits, No diastolic murmur, No edema, No gallop, No irregular rhythm, No jugular venous distention (JVD), No murmurs/extra sounds, No rub, No systolic murmur, No S3, No S4, No other Gastrointestinal: Soft, slightly distended, nontender throughout. RLQ paracentesis site clean appearing. Musculoskeletal: nl extremities to inspection Extremities: normal pulses; No calf tenderness, No cyanosis, No clubbing, No edema, No pitting pedal edema, No palpable cord, No tenderness, No other Results Results 24hrs Laboratory Tests Test 01/22/19 05:21 White Blood Count 13.6 H Red Blood Count 4.18 L Hemoglobin 12.1 L Hematocrit 37.0 L Mean Corpuscular Volume 88.5 Mean Corpuscular Hemoglobin 28.9 L Mean Corpuscular Hemoglobin Concent 32.7 Red Cell Distribution Width 20.0 H Platelet Count 182 Mean Platelet Volume 8.0 Immature Granulocytes % 0.800 H Neutrophils % 81.0 H Lymphocytes % 8.1 L Monocytes % 9.0 Eosinophils % 0.9 Basophils % 0.2 Nucleated Red Blood Cells % 0.0 Immature Granulocytes # 0.110 H Neutrophils # 11.0 H Lymphocytes # 1.1 Monocytes # 1.2 H Eosinophils # 0.1 Basophils # 0.0 Nucleated Red Blood Cells # 0.0 Sodium Level 136 Potassium Level 4.0 Chloride Level 107 Carbon Dioxide Level 22 Anion Gap 7 Blood Urea Nitrogen 17 Creatinine 0.90 Est Glomerular Filtrat Rate mL/min > 60 Glucose Level 116 Calcium Level 8.5 Medications Medication Current Medications IV Flush (NS 3 ml) 3 ml PER PROTOCOL IV Last administered on 01/22/19at 12:59; Admin Dose 3 ML; Start 01/16/19 at 19:30 Ondansetron HCl (Zofran Inj) 4 mg Q6H PRN IV NAUSEA/VOMITING; Start 01/16/19 at 19:30 Acetaminophen (Tylenol Tab) 650 mg Q6H PRN PO .PAIN 1-3 OR TEMP; Start 01/16/19 at 19:30 Acetaminophen/ Hydrocodone Bitart ([place] (5/325)) 1 tab Q6H PRN PO .MOD PAIN 4- 6 Last administered on 01/19/19 15:49; Admin Dose 1 TAB; Start 01/16/19 at 19:30 Morphine Sulfate (morphine) 2 mg Q4H PRN IV .SEVERE PAIN 7-10 Last administered on 01/16/19 21:27; Admin Dose 2 MG; Start 01/16/19 at 19:30 Docusate Sodium (Colace) 100 mg Q12H PRN PO .CONSTIPATION Last administered on 01/18/19 16:26; Admin Dose 100 MG; Start 01/16/19 at 19:30 Magnesium Hydroxide (Milk Of Mag) 30 ml DAILY PRN PO .CONSTIPATION Last administered on 01/18/19 16:26; Admin Dose 30 ML; Start 01/16/19 at 19:30 Heparin Sodium (Porcine) (Heparin (5000 Units/1ml)) 5,000 unit Q12 SC Last administered on 01/20/19 21:29; Admin Dose 5,000 UNIT; Start 01/16/19 at 21:00 Lorazepam (Ativan) 0.5 mg Q6H PRN IV ANXIETY; Start 01/16/19 at 19:30 Albuterol/ Ipratropium (Duoneb) 3 ml Q4H RESP THERAPY PRN HHN SHORTNESS OF BREATH; Start 01/16/19 at 19:30 Piperacillin Sod/ Tazobactam Sod 100 ml @ 200 mls/hr Q6 IVPB Last administered on 01/22/19at 12:59; Admin Dose 200 MLS/HR; Start 01/17/19 at 00:00 Hydralazine HCl (Apresoline) 10 mg Q6H PRN IV ELEVATED BLOOD PRESSURE; Start 01/16/19 at 19:30 Nitroglycerin (Nitroglycerin (Sl Tab) 0.4 Mg) 1 tab Q5M PRN SL ANGINA; Start 01/16/19 at 19:30 Famotidine (Pepcid Iv) 20 mg 0600 IV Last administered on 01/22/19 05:09; Admin Dose 20 MG; Start 01/19/19 at 06:00 Lactulose (Enulose) 20 gm TID PO Last administered on 01/22/19at 12:59; Admin Dose 20 GM; Start 01/20/19 at 13:00 LINNEA LONGORIA MD Jan 22, 2019 14:56
[2019-01-22] MEDS: HYDROCODONE/APAP (5/325) TAB PO PRN (18:59)
[2019-01-22 19:25] VITALS: BP 117/71; PULSE 105; RESP 20
--- NOTE | 2019-01-22 20:16 | PN ---
DATE: 01/22/2019 SUBJECTIVE: The patient states that he is feeling well. Did undergo a liver biopsy today under CT g uidaezioe. The patient does not complain of any abdominal pain. He is not having any pleuritic pain e ither. OBJECTIVE: GENERAL: The patient is a well-developed but chronically ill-appearing male who is in no acute distr ess. VITAL SIGNS: Temperature 98.8 orally, pulse 103 per minute and regular, respirations 18, blood press ure 111/64, pulse oximetry 93% on room air. SKIN: No ecchymosis, no petechiae or rashes. HEENT: Normocephalic. No evidence of trauma. Pupils equal, round, react to light and accommodation . Sclerae are icteric. Oral mucosa is moist without lesions. Tongue is well papillated. No gingiv al hyperplasia, no hypertrophy of Waldeyer ring. No mucosal telangiectasias. NECK: Supple. No jugular venous distention or thyroid enlargement. No carotid bruits. CHEST: Decreased breath sounds in both bases. HEART: Sinus tachycardia. No S3, S4 or murmurs. ABDOMEN: Distended with ascites. The liver is not ballottable. EXTREMITIES: No clubbing. No edema or cyanosis. No palpable cords or Homans sign. NEUROLOGIC: Normal. LABORATORY DATA: White count 13,600 with an absolute neutrophil count of 11,000, hemoglobin 12.1, he matocrit 37 and platelet count 182,000. Sodium 136, potassium 4, BUN 17, creatinine 0.9. ASSESSMENT: 1. Metastatic colorectal carcinoma. 2. Obstructive jaundice secondary to #1. PLAN: The patient has had a biopsy today. Now we will hopefully have adequate tissue in order to do genomic studies, which may help direct therapy. As previously noted, the patient has likely been on oxaliplatin without benefit. There were no hepatic functions done today. We will recheck a chemistry panel in a.m. to determine i f the patient's biliary tract continues to be decompressed. May need to make decision about placemen t of another metal stent. Dictated By: JACQUELINE GOODE MD, SR/NTS Conf#: [id number] DID#: [id number]
[2019-01-23 01:20] VITALS: BP 117/69; PULSE 103; RESP 20
[2019-01-23] MEDS: PIPER-TAZO 3.375 GM IV (PMX) 100 ML IVPB SCH ×2 (05:31→12:45)
[2019-01-23] MEDS: FAMOTIDINE 20 MG INJ IV SCH (05:31)
[2019-01-23 07:57] VITALS: BP 111/66; PULSE 106; RESP 18
[2019-01-23] MEDS: LACTULOSE 30ML CUP PO SCH ×2 (10:07→12:49)
[2019-01-23] MEDS: HEPARIN 5,000 UNIT/1 ML VIAL SC SCH (11:12)
--- NOTE | 2019-01-23 12:29 | PDOCDIS ---
Discharge Instructions DIAGNOSIS Discharge Diagnosis Acute cholangitis CONDITION [id number] Patient Condition: [id number] Good HOME CARE INSTRUCTIONS: Coglr2Iu Diet Instructions: Caiqx1k Regular ACTIVITY: [id number] Activity Restrictions: Dqfxh2u No Restrictions FOLLOW UP/APPOINTMENTS Follow-up Plan 1. Continue a five day course of antibiotics as prescribed. 2. See Dr. Franco in clinic within one week. Call his clinic to make an appointment [phone]. 3. See your oncologist in clinic as scheduled. 4. Return to the emergency room if you develop worsening abdominal pain that doesn't respond to tylenol (acetaminophen) 1. Contine con un curso de antibiticos de jaya molina segn lo prescrito. 2. Johnny al Dr. Franco en la clnica dentro de nallely semana. Llame a finnegan clnica para hacer nallely jasmin [phone]. 3. Consulte a finnegan onclogo en la clnica segn lo programado. 4. Regrese a la luan de emergencias si desarrolla un empeoramiento del dolor abdominal que no responde al tylenol (acetaminofeno) LINNEA LONGORIA MD Jan 23, 2019 12:29
[2019-01-23 14:21] VITALS: BP 130/73; PULSE 107; RESP 16
[2019-01-23] MEDS ORDERED: HEPARIN (100 UNITS/ML) 5 ML SYG CATHETER ONE (16:30)
--- NOTE | 2019-01-23 16:41 | DS ---
Date/Time of Note Date/Time of Note DATE: 01/23/19 TIME: 16:32 Discharge Summary Admission/Discharge Info Admit Date/Time Jan 16, 2019 at 18:00 Discharge Date/Time Jan 23, 2019 Discharge Diagnosis Acute cholangitis Obstructive jaundice Patient Condition: Good Hx of Present Illness Patient is a 63-year-old male with a history of colon cancer diagnosed 3 years ago status post resection (no chemo), recently diagnosed liver and lung metastasis (July 2018), obstructive jaundice status post ERCP with stent placement. Patient was brought to the ER for abdominal pain and distention. Patient also complains of jaundice. He was admitted here in July of this year and at that time he was diagnosed with liver metastasis. He also underwent ERCP with stent placement for obstructive jaundice. He said this current jaundice and worsening abdominal pain/distention started 6 days ago. He said he has been receiving chemo ("11 times")and follows up at [facility]. He is oncologist is Dr.Nader Wright ([phone]). When he presented to the ER, vitals were stable. Labs shows worsening liver chemistries with AST 362, ALT 160, alk phos 1100. Bilirubin however improved from last admission. Hospital Course He was started on zosyn for acute cholangitis. He was taken for ERCP by Dr. Franco, there was removal of CBD stones and pus; and a plastic stent was placed. The patient's LFTs improved and jaundice resolved. He was then taken for therapeutic paracentesis. Finally, at the request of Dr. Rogers a CT-guided liver biopsy was done to do genome studies. The patient did have poor appetite and was started on Boost supplements, otherwise he had an uncomplicated hospitalization. Plan to discharge home to finish a course of ciprofloxacin and metronidazole for cholangitis. He should see Dr. Franco in clinic before a week. Home Meds Active Scripts Metronidazole* (Metronidazole*) 500 Mg Tablet, 500 MG PO Q8 for 5 Days, #15 TAB Prov:LINNEA LONGORIA MD 01/23/19 Ciprofloxacin Hcl* (Ciprofloxacin Hcl*) 500 Mg Tablet, 500 MG PO BID for 5 Days, #10 TAB Prov:LINNEA LONGORIA MD 01/23/19 Discontinued Reported Medications Losartan Potassium* (Losartan Potassium*) 25 Mg Tablet, 25 MG PO DAILY 07/24/18 Felodipine* (Felodipine*) 5 Mg Tab.sr.24h, 5 MG PO DAILY 07/24/18 Discontinued Scripts Apixaban* (Eliquis*) 5 Mg Tablet, 2.5 MG PO BID for 60 Days, #120 TAB Prov:MEGHAN HAYNES MD 07/28/18 Follow-up Plan 1. Continue a five day course of antibiotics as prescribed. 2. See Dr. Franco in clinic within one week. Call his clinic to make an appointment [phone]. 3. See your oncologist in clinic as scheduled. 4. Return to the emergency room if you develop worsening abdominal pain that doesn't respond to tylenol (acetaminophen) 1. Contine con un curso de antibiticos de jaya molina segn lo prescrito. 2. Johnny al Dr. Franco en la clnica dentro de nallely semana. Llame a finnegan clnica para hacer nallely jasmin [phone]. 3. Consulte a finnegan onclogo en la clnica segn lo programado. 4. Regrese a la luan de emergencias si desarrolla un empeoramiento del dolor abdominal que no responde al tylenol (acetaminofeno) Primary Care Provider [facility] Time spent on discharge: > 30 minutes Pending Labs Laboratory Tests Test 01/23/19 06:31 White Blood Count 12.5 10^3/ul (4.8-10.8) Red Blood Count 4.02 10^6/ul (4.70-6.10) Hemoglobin 11.8 g/dl (14.0-18.0) Hematocrit 36.3 % (42.0-52.0) Mean Corpuscular Volume 90.3 fl (82.0-101.0) Mean Corpuscular Hemoglobin 29.4 pg (29.0-33.0) Mean Corpuscular Hemoglobin Concent 32.5 g/dl (32.0-37.0) Red Cell Distribution Width 19.9 % (11.5-14.5) Platelet Count 206 10^3/UL (140-415) Mean Platelet Volume 8.0 fl (7.4-10.4) Immature Granulocytes % 1.400 % (0.001-0.429) Neutrophils % 79.2 % (39.0-77.0) Lymphocytes % 8.1 % (15.0-51.0) Monocytes % 9.5 % (0.0-11.0) Eosinophils % 1.3 % (0.0-7.0) Basophils % 0.5 % (0.0-2.0) Nucleated Red Blood Cells % 0.0 /100WBC (0.0-0.0) Immature Granulocytes # 0.180 10^3/ul (0.0-0.031) Neutrophils # 9.9 10^3/ul (1.6-7.5) Lymphocytes # 1.0 10^3/ul (0.8-2.9) Monocytes # 1.2 10^3/ul (0.3-0.9) Eosinophils # 0.2 10^3/ul (0.0-0.5) Basophils # 0.1 10^3/ul (0.0-0.1) Nucleated Red Blood Cells # 0.0 10^3/ul (0.0-0.0) Sodium Level 136 mmol/L (135-144) Potassium Level 4.1 mmol/L (3.5-5.1) Chloride Level 105 mmol/L (97-110) Carbon Dioxide Level 24 mmol/L (21-31) Anion Gap 7 (5-13) Blood Urea Nitrogen 23 mg/dl (7-20) Creatinine 0.99 mg/dl (0.61-1.24) Est Glomerular Filtrat Rate mL/min > 60 mL/min (>60) Glucose Level 117 mg/dl (70-220) Calcium Level 8.8 mg/dl (8.4-10.2) Total Bilirubin 3.6 mg/dl (0.2-1.3) Direct Bilirubin 2.20 mg/dl (0.00-0.20) Indirect Bilirubin 1.4 mg/dl (0-1.1) Aspartate Amino Transf (AST/SGOT) 190 IU/L (15-46) Alanine Aminotransferase (ALT/SGPT) 110 IU/L (13-69) Alkaline Phosphatase 1344 IU/L (42-121) Total Protein 8.1 g/dl (6.1-8.1) Albumin 2.6 g/dl (3.3-4.9) Globulin 5.50 g/dl (1.3-3.2) Albumin/Globulin Ratio 0.47 LINNEA LONGORIA MD Jan 23, 2019 16:41
--- NOTE | 2019-01-24 07:21 | PN ---
DATE: 01/23/2019 SUBJECTIVE: The patient is seen by me earlier this morning pretty alert. No complaints. No nausea, no vomiting, no GI bleeding. He underwent liver biopsy yesterday. The results are pending. He has obstructive jaundice secondary to metastatic disease to the biliary system. He underwent placement of 7-Bengali 12 cm long stent into the right hepatic duct into the duodenum and removal of the pus and stones from the common bile duct. His bilirubin has come down significantly. LABORATORY WORKUP: Today, bilirubin 3.6, alkaline phosphatase 1344, AST 190, ALT 110. WBC count is 12,500, hemoglobin 11.8. The pathology report from the liver biopsy is pending. CLINICAL IMPRESSION: Obstructive jaundice secondary to metastatic disease with obstruction to the bi liary system, status post removal of pus and stones in the common bile duct and placement of a 7-Fren ch plastic stent into the right hepatic duct across the ampulla into the duodenum through the existin g metal stent. PLAN: At this time, await for the liver biopsy and the patient's treatment depends upon the oncology advice. Dictated By: DOMINIC GONZALEZ/NTS Conf#: [id number] DID#: [id number] CC: JOVANNA JIANG MD; LINNEA LONGORIA MD;*[facility]*
== END 2019-01-23 18:00 | disposition home or self-care (01) | DRG 444 ==
LOC: E/R 12:47 → 2NE 18:00
PROVIDERS: ADMIT Internal Medicine; ATTEND Internal Medicine
PROC: 0FC98ZZ Extirpation of Matter from Common Bile Duct, Via Natural or Artificial Opening Endoscopic (ICD-10-PCS; principal; 2019-01-16)
PROC: 0F758DZ Dilation of Right Hepatic Duct with Intraluminal Device, Via Natural or Artificial Opening Endoscopic (ICD-10-PCS; 2019-01-16)
PROC: 0F778ZZ Dilation of Common Hepatic Duct, Via Natural or Artificial Opening Endoscopic (ICD-10-PCS; 2019-01-16)
PROC: 0W9G3ZZ Drainage of Peritoneal Cavity, Percutaneous Approach (ICD-10-PCS; 2019-01-20)
PROC: 0FB23ZX Excision of Left Lobe Liver, Percutaneous Approach, Diagnostic (ICD-10-PCS; 2019-01-22)
DX: K80.33 Calculus of bile duct with acute cholangitis with obstruction (principal); I81 Portal vein thrombosis; C18.9 Malignant neoplasm of colon, unspecified; C78.7 Secondary malignant neoplasm of liver and intrahepatic bile duct; C78.00 Secondary malignant neoplasm of unspecified lung; N17.9 Acute kidney failure, unspecified; R18.8 Other ascites; D63.0 Anemia in neoplastic disease; E11.9 Type 2 diabetes mellitus without complications; I10 Essential (primary) hypertension; K59.00 Constipation, unspecified; R16.1 Splenomegaly, not elsewhere classified; Z90.49 Acquired absence of other specified parts of digestive tract; Z87.891 Personal history of nicotine dependence; Z79.899 Other long term (current) drug therapy; Z79.01 Long term (current) use of anticoagulants; Z79.84 Long term (current) use of oral hypoglycemic drugs
CPT/HCPCS: 71045; 74176; 74330; 76700; 77012; 80048; 80053; 80061; 80076; 81001; 81003; 82105; 82150; 82378; 82945; 82962; 83036; 83690; 83735; 84100; 84157; 84439; 84443; 85025; 85610; 85730; 86301; 87070; 87102; 87116; 88104; 88305; 88307; 88313; 88341; 88342; 89051; 92610; 93005; 97162; 97166; C2617; C9113; J0690; J1100; J1642; J1644; J2250; J2270; J2405; J2543; J2710; J3010; J7042; Q9967